=== PATIENT | female | born 2000 | race Caucasian/White ===

== ENCOUNTER 2019-11-30 10:04 | Emergency (ER) | payer OTHER, SELFPAY ==
--- NOTE | ~2019-11-30 | CT_ITS ---
EXAMINATION: CT abdomen pelvis w con INDICATION: Right lower quadrant abdominal pain TECHNIQUE: Computed tomographic images of the abdomen and pelvis were obtained after the administrati on of 100 cc of Omnipaque 350 intravenous contrast. The dose-length product (DLP) was 889.65 mGy-cm. Automated exposure control and iterative reconstruction technique were employed. COMPARISON: None available FINDINGS: The lung bases are clear. The heart size is normal. The liver, spleen, pancreas, gallbladde r, and adrenal glands are normal. The kidneys are unremarkable. No pathologically enlarged abdominal or pelvic lymph nodes are identified. There is no free intraperitoneal gas or evidence of bowel obstr uction. The appendix is normal. There is a tiny fat-containing umbilical hernia. There is a circumscr ibed area of fat attenuation anterior to the ascending colon with surrounding fat stranding. IMPRESSION: 1. Findings consistent with epiploic appendagitis of the ascending colon. Reviewed, dictated and finalized at location A.
[2019-11-30 10:21] VITALS: BP 127/81; PULSE 90; RESP 18; TEMP 37.3; O2SAT 99
[2019-11-30 10:38] LABS: Basophils Absolute Auto 0.1 K/mm3 (0.0-0.1); Basophils Percent Auto 0.6 % (0.2-1.2); Eosinophils Absolute Auto 0.1 K/mm3 (0-0.3); Eosinophils Percent Auto 1.3 % (0-4.4); Hematocrit 44.4 % (37.0-47.0); Hemoglobin 14.4 g/dL (12.0-15.0); Immature Granulocyte Absolute 0.04 K/mm3 (0.00-0.031); Immature Granulocyte Percent A 0.4 % (0-0.5); Lymphocytes Absolute Auto 1.98 K/mm3 (0.9-3.2); Mean Corpuscular HGB Conc 32.4 g/dl (32-36); Mean Corpuscular Hemoglobin 28.5 pg (26-34); Mean Corpuscular Volume 87.7 fl (80-100); Mean Platelet Volume 9.9 fl (7.4-10.4); Monocytes Absolute Auto 0.8 K/mm3 (0.1-0.6); Monocytes Percent Auto 8.3 % (2.6-8.5); Neutrophils Absolute Auto 6.9 K/mm3 (1.3-6.7); Neutrophils Percent Auto 69.4 % (45.5-73.1); Platelet Count Result 410 k/mm3 (150-375); Red Blood Count 5.06 M/mm3 (4.2-5.4); Red Cell Distribution Width 13.9 % (11.5-14.5); White Blood Count 9.9 K/mm3 (4.5-10.0)
[2019-11-30 10:40] LABS: Add Urine Microscopic? NO; Appearance Urine Clear (Clear); Bilirubin Urine Negative (Negative); Blood Urine Negative (Negative); Color Urine Colorless (Yellow); Glucose Urine UA Negative (Negative); Ketones Urine Negative (Negative); Leukocyte Esterase Ur Negative LEU/UL (Negative); Nitrate Urine Negative (Negative); Protein Urine Negative (Negative); Specific Grav Ur 1.006 (1.001-1.035); Urobilinogen Urine Negative mg/dL (<2.0)
[2019-11-30 10:51] LABS: Alanine Aminotransferase 28 U/L (4-35); Albumin Level 4.5 g/dL (3.5-5.1); Alkaline Phosphatase 100 U/L (38-126); Anion Gap 9 mmol/L (8-16); Aspartate Amino Transferase 27 U/L (14-36); Bilirubin,Total 0.4 mg/dL (0.2-1.3); Blood Urea Nitrogen 12 mg/dL (7-17); Calcium 9.6 mg/dL (8.4-10.2); Carbon Dioxide 25 mmol/L (22-30); Chloride 105 mmol/L (98-107); Estimated CRCL calculation 126 ml/min; Estimated Glomerular Filt Rate > 60; Glucose 94 mg/dL (65-105); Lipase 125 U/L (23-300); Potassium 4.1 mmol/L (3.4-5.0); Sodium 139 mmol/L (137-145)
--- NOTE | 2019-11-30 11:14 | ED.ABDPAIN ---
HPI - Abdominal Pain General Chief Complaint: Abdominal Pain <Michelle White PA-C - Last Filed: 11/30/19 12:58> Stated Complaint: RLQ ABD PAIN <DOROTHY Castorena Last Filed: 11/30/19 12:58> Time Seen by Provider: 11/30/19 10:17 <Michelle White PA-C - Last Filed: 11/30/19 12:58> Source: patient <Michelle DOROTHY Seymour Last Filed: 11/30/19 12:58> Mode of arrival: ambulatory <DOROTHY Castorena Last Filed: 11/30/19 12:58> Limitations: no limitations <DOROTHY Castorena Last Filed: 11/30/19 12:58> History of Present Illness HPI narrative: This is a 19-year-old female that presents the emergency department for right lower quadrant abdominal pain since yesterday. Associated with nausea and vomiting. Reports pain is worse with movement. Reports she recently had a nerve ablated in her pelvis on this side. Denies fever, diarrhea, dysuria, hematuria. <Michelle White PA-C - Last Filed: 11/30/19 12:58> Related Data Allergies/Adverse Reactions: Allergies Allergy/AdvReac Type Severity Reaction Status Date / Time No Known Allergies Allergy Verified 11/30/19 10:25 <Michelle White PA-C - Last Filed: 11/30/19 12:58> Review of Systems Review of Systems: Narrative: CONSTITUTIONAL: Denies fever GASTROINTESTINAL: Reports abdominal pain, nausea, vomiting. Denies diarrhea. GENITOURINARY: Denies dysuria or hematuria. <Michelle White PA-C - Last Filed: 11/30/19 12:58> All systems reviewed & are unremarkable except as noted in HPI and below <DOROTHY Castorena Last Filed: 11/30/19 12:58> [facility] Past Medical History Medical History: Medical History (Updated 11/30/19 @ 12:24 by Sylvia Ramos MD) History of anxiety History of depression <DOROTHY Castorena Last Filed: 11/30/19 12:58> Surgical History Surgical History: Surgical History (Updated 11/30/19 @ 11:17 by Michelle White PA-C) History of abdominal surgery <Michelle White PA-C - Last Filed: 11/30/19 12:58> Social History Social History: Social History (Updated 11/30/19 @ 11:16 by Michelle White PA-C) Smoking status: Current every day smoker Tobacco type: e-cigarettes/vaping Substance use: never <Michelle White PA-C - Last Filed: 11/30/19 12:58> Exam Narrative: Exam Narrative: GENERAL: Well-appearing, well-nourished, and in no acute distress. HEAD: Normocephalic, atraumatic. EYES: EOMI. CHEST: Clear to auscultation. No respiratory distress. No wheezes rales or rhonchi HEART: Regular rate and rhythm. No murmur heard. Normal peripheral pulses. ABDOMEN: Soft, nondistended, normal active bowel sounds. Tender to palpation of the right lower quadrant, without guarding. No CVA tenderness EXTREMITIES: Normal range of motion. No edema. SKIN: Warm, dry, no rash. NEURO: No focal deficits. Alert and oriented x3. PSYCH: Normal mood and affect <Michelle White PA-C - Last Filed: 11/30/19 12:58> Course Vital Signs Vital signs: Vital Signs Temperature 99.1 F 11/30/19 10:21 Pulse Rate 90 11/30/19 10:21 Respiratory Rate 18 11/30/19 10:21 Blood Pressure 127/81 11/30/19 10:21 Pulse Oximetry 99 11/30/19 10:21 Temperature 99.1 F 11/30/19 10:21 Pulse Rate 90 11/30/19 10:21 Respiratory Rate 18 11/30/19 10:21 Blood Pressure 127/81 11/30/19 10:21 Pulse Oximetry 99 11/30/19 10:21 <Michelle White PA-C - Last Filed: 11/30/19 12:58> Vital Signs Temperature 99.1 F 11/30/19 10:21 Pulse Rate 90 11/30/19 10:21 Respiratory Rate 18 11/30/19 10:21 Blood Pressure 127/81 11/30/19 10:21 Pulse Oximetry 99 11/30/19 10:21 Temperature 99.1 F 11/30/19 10:21 Pulse Rate 90 11/30/19 10:21 Respiratory Rate 18 11/30/19 10:21 Blood Pressure 127/81 11/30/19 10:21 Pulse Oximetry 99 11/30/19 10:21 <Sylvia Ramos MD - Last Filed: 11/30/19 13:23> MDM - Abdominal Pain [facility] Medical de
[2019-11-30] MEDS: ONDANSETRON INJ 4 MG/2 ML VIAL IV PUSH (11:24)
[2019-11-30] MEDS: KETOROLAC 30 MG/ML VIAL (*BKC) IV PUSH (13:03)
[2019-11-30 13:35] VITALS: BP 121/74; PULSE 77; RESP 18; TEMP 36.8; O2SAT 98
== END 2019-11-30 13:36 | disposition home or self-care (01) ==
PROVIDERS: Physician Assistant; Emergency Provider Emergency Medicine; PCP Pediatrics
DX: K63.89 Other specified diseases of intestine (principal)
CPT/HCPCS: 36415; 74177; 80053; 81003; 81025; 83690; 85025; 96374; 96375; 99284; J1885; J2405; Q9967

== ENCOUNTER 2019-12-22 11:00 | Outpatient (CLI) | payer OTHER, SELFPAY ==
--- NOTE | ~2019-12-22 | US_ITS ---
US right upper quadrant INDICATION: Right upper quadrant pain PROCEDURE: Realtime right upper abdominal ultrasound. COMPARISON: No prior studies for comparison. FINDINGS: The pancreas is normal without focal mass or pancreatic ductal dilation. Liver echotexture is normal without focal mass or intrahepatic biliary dilatation. There is normal directional flow i n the portal vein. The gallbladder is normal without stones, gallbladder wall thickening or pericholecystic fluid. Comm on bile duct measures 4 mm. No sonographic Ellis's sign. IMPRESSION: 1: Normal limited abdominal ultrasound. Reviewed, dictated and finalized at location A.
== END 2019-12-22 11:01 | disposition home or self-care (01) ==
PROVIDERS: Visit Provider Surgery
DX: R10.11 Right upper quadrant pain (principal)
CPT/HCPCS: 76705

== ENCOUNTER → 2022-02-28 13:02 | Outpatient (CLI) | payer OTHER, SELFPAY ==
--- NOTE | ~2022-02-28 | US_ITS ---
EXAMINATION: US thyroid DATE: 02/28/2022 13:20 INDICATION: Other specified abnormal findings of blood chemistry. TECHNIQUE: Multiple ultrasound images of the thyroid were obtained. COMPARISON: None. FINDINGS: The right thyroid lobe measures 4.5 x 1.8 x 1.2 cm. The left thyroid lobe measures 4.7 x 1.6 x 1.4 c m. There is normal echotexture and echogenicity throughout the thyroid gland. No discrete nodules id entified. Normal vascular flow is present. IMPRESSION: 1. Normal thyroid. Reviewed, dictated and finalized at location A. [employer] IMPRESSION: 1. Normal thyroid.
== END ==
PROVIDERS: PCP Internal Medicine; Visit Provider Internal Medicine
DX: R79.89 Other specified abnormal findings of blood chemistry (principal)
CPT/HCPCS: 76536

== ENCOUNTER 2024-09-10 07:57 | Outpatient (CLI) | payer OTHER, SELFPAY ==
--- NOTE | ~2024-09-10 | MR_ITS ---
MRI of the right hand CLINICAL HISTORY: Pain TECHNIQUE: Axial T1-weighted and T2 fat-sat images, coronal T1-weighted and T2 fat-sat images, and sa gittal T1-weighted and T2 fat-sat images were acquired. FINDINGS: Bone marrow signals are unremarkable. No fracture or bone marrow edema seen. No evidence fo r osteomyelitis. No periosteal reaction seen. Joint spaces are intact without significant degenerativ e change. No evidence for inflammatory/erosive arthropathy. No joint effusion seen. Collateral ligame nt metacarpophalangeal and interphalangeal joints appear intact. Flexor and extensor tendons are intact. Intrinsic musculature of the hand is unremarkable. No soft ti ssue mass or fluid collection seen. IMPRESSION: No significant abnormality seen. Reviewed, dictated and finalized at [facility].
== END 2024-09-10 07:58 | disposition home or self-care (01) ==
PROVIDERS: PCP Orthopaedic Surgery; Visit Provider Orthopaedic Surgery
DX: M79.641 Pain in right hand (principal)
CPT/HCPCS: 73218

== ENCOUNTER 2024-11-03 14:47 | Outpatient (CLI) | payer OTHER, SELFPAY ==
--- OUTSIDE RECORDS SUMMARY | 2024-11-03 14:52 | XMS_ITS | Data Portability ---
Author Organization [facility], [facility] Address [address] [place] [address] Assessment No assessment recorded. Plan of Treatment Reminders Order Date Submit Date Provider Last Modified By Organization Details Last Modified Time Details Appointments None recorded. Lab rapid SARS CoV 2 Ag, QL, [place], upper respiratory specimen 2024 025 [facility], [address] [place], [address], 09:45:30 unlisted lab - veritor flu A/B waived 2024 025 [place] [address] [facility], [address] [place] [address], [id number], 09:41:44 Referral None recorded. Procedures None recorded. Surgeries None recorded. Imaging None recorded. Medication Orders oseltamivir 75 mg capsule 2024 025 [id number], [address], [place], [phone], 09:23:46 Patient TargetsNo targets recorded. Patient Instructions Encounter Date Encounter Id Patient Instructions Last Modified By Organization Details Last Modified Time 05/13/2024 [id number] un estilo de vid a quin: instrucciones de cuidado - [A healthy lifestyle: care instructions] Not available 05/13/2024 09:41:44 A healthy lifestyle: care instructions Not available 05/13/2024 09:41:44 exercise [email or web address] Not available 2024 09:41:44 nutrition [email or web address] Not available 2024 09:41:44 Reason for Referral None Reported. Results Created Date Observation Date Name Description Value Unit Range Abnormal Flag Note LastModifiedBy Organization Detail LastModifiedTime 05/13/1905/13/2024 VERIT OR FLU A/B WAIVE D influenza A POSITI VE negati ve abnormal Not Available [facility] [address] [place], [address], 05/13/2024 09:28:19 05/13/19 25 05/13/2024 VERIT OR FLU A/B WAIVE D influenza B NEGATI VE negati ve If the test is negat [place] for the prese nce of influ joellen A or influ joellen B antig en, infec tion due to influ joellen canno t be ruled -out becau se the antig en prese nt in the sampl e may be below the detec tion limit of the test. It is recom claudia d that these resul ts be confi rmed by viral cultu re or an FDA-c leare d influ joellen A and B molec ular assay . Not Available [facility] [address] [place], [address], 05/13/2024 09:28:19 05/13/1905/13/2024 rapid SARS CoV 2 Ag, QL, [place], upper respi rator y speci men SARS COVID-19 negati ve Not Available [facility] [address] [place], [address], 05/13/2024 09:02:47 Result Notes None recorded. Problems Name Problem SNOMED Code Status Onset Date Resolution Date Notes Provider Name and Address Organization Details Recorded Time Fever 484981513 Active 2024 MAME MOODY PA-C [address] [place] [address], [phone], [facility] 01/31/202 5 09:02:43 Influenza caused by Influenza A virus 044031448 Active 2024 MAME MOODY PA-C [address] [place] [address], [phone], [facility] 5 09:22:24 Problem Notes None recorded. Medical Equipment None Reported. Allergies No known drug allergies Medications Name Sig Start Date Stop Date Status Note LastModified by Organization Details LastModified Time clonidine HCl 0.1 mg tablet TAKE 1 TABLET BY MOUTH TWICE A DAY active Not Available Not Available No t Available azithromycin 250 mg tablet active Not Available Not Available Not Available fluconazole 150 mg tablet TAKE 1 TABLET BY MOUTH NOW. REPEAT IN 3 DAYS active Not Available Not Available No t Available metronidazol e 0.75 % (37.5 mg/5 gram) vaginal gel INSERT 1 APPLICATOR BY VAGINAL ROUTE FOR 5 NIGHTS active Not Available Not Available No t Available spironolacto ne 100 mg tablet TAKE 1 TABLET BY MOUTH ONCE DAILY WITH A MEAL FOR 30 DAYS active Not Available Not Available No t Available doxycycline hyclate 50 mg capsule TAKE 1 CAPSULE BY MOUTH EVERY DAY WITH FOOD FOR 30 DAYS active Not Available Not Available No t Available clobetasol 0.05 % topical cream APPLY TWICE DAILY TO ECZEMA UP TO 2 WEEKS/MONTH NEEDED. active Not Available Not Available N ot Available topiramate 25 mg tablet TAKE 1 TABLET BY MOUTH EVERYDAY AT BEDTIME active Not Available Not Available No t Available metronidazol e 500 mg tablet TAKE 1 TABLET BY MOUTH TWICE DAILY FOR 7 DAYS active Not Available Not Available No t Available levothyroxin e 100 mcg tablet TAKE 1 TABLET BY MOUTH EVERY DAY active Not Available Not Available No t Available clonidine HCl 0.2 mg tablet TAKE 1 TABLET BY MOUTH TWICE DAILY active Not Available Not Available No t Available lithium carbonate 300 mg capsule TAKE 2 CAPSULES BY MOUTH TWICE A DAY active Not Available Not Available No t Available oseltamivir 75 mg capsule TAKE 1 CAPSULE BY MOUTH TWICE DAILY FOR 5 DAYS active Not Available Not Available No t Available metformin 1,000 mg tablet 1000 MG ORALLY TWICE A DAY active Not Available Not Available Not Available lamotrigine 100 mg tablet TAKE 1 TABLET BY MOUTH TWICE A DAY FOR 30 DAYS active Not Available Not Available No t Available aripiprazole 15 mg tablet TAKE 1 TABLET BY MOUTH EVERY DAY active Not Available Not Available No t Available aripiprazole 20 mg tablet TAKE 1 TABLET BY MOUTH EVERY DAY FOR 90 DAYS active Not Available Not Available No t Available metformin ER 1,000 mg tablet,exten ded release 24hr (osmotic) 1000 MG ORALLY DAILY active Not Available Not Available No t Available nitrofuranto in monohydrate/ macrocrystal s 100 mg capsule TAKE 1 CAPSULE BY MOUTH EVERY 12 HOURS FOR 7 DAYS. TAKE WITH FOOD active Not Available Not Available No t Available Klonopin active Not Available Not Avai lable Not Available clonidine active Not Available Not Priyanka ilable Not Available levothyroxin e active Not Available Not Available Not Available lithium carbonate active Not Available Not Available No t Available lamotrigine active Not Available Not A vailable Not Available spironolacto ne active Not Available Not Available Not Available doxycycline hyclate active Not Available Not Available Not Available metformin active Not Available Not Priyanka ilable Not Available aripiprazole active Not Available Not Available Not Available lisdexamfeta mine 70 mg capsule TAKE 1 CAPSULE BY MOUTH DAILY IN THE MORNING active Not Available Not Available No t Available Vyvanse active Not Available Not Avail able Not Available Vitals Date Recorded Body weight Body mass index (BMI) Body height Pain severity - 0-10 verbal numeric rating [Score] - Reported Body temperature Heart rate Respiratory rate Oxygen saturation Oxygen saturation in Arterial blood by Pulse oximetry Systolic And Diastolic Provider Name and Address Organization Details Last Updated DateTime 5 883516. 09 g 38.2 kg/m2 165.1 cm 6 98.6 [degF] 104 /min 18 /min 98 % 98 % 127/86 mm[Hg] Bernadette Perez LPN [facility] 09:13:56 Social History Question Answer Notes LastModified by Kwaga Details LastModified Time Tobacco Smoking Status Never Smoker Bernadette Perez LPN [facility] 05/13/2024 09:11:34 PRAPARE Screening Completed On: 05/13/2024 Information not available 05/13/2024 What Was The Date Of Your Most Recent Tobacco Screening? 05/13/2024 [email or web address] Information not available 05/13/2024 Sex: Female Functional Status Question Answer Note LastModified by Kwaga Details LastModified Time Do you use any illicit or recreational drugs? Yes [email or web address] Information not available 05/13/2024 Do you or have you ever used any other forms of tobacco or nicotine? No [email or web address] Information not available 05/13/2024 Mental Status None recorded. Family History Nothing Reported. Medical History No medical history recorded. Gynecological History Statement/Question Response Date of LMP 04/13/2019 Obstetrics History GPAL:G 0 P 0 0 0 0 Past Encounters Encounter ID Performer Location Encounter Start Date Encounter Closed Date Diagnosis/Indication Diagnosis SNOMED-CT Code Diagnosis ICD10 Code Diagnosis Note [id number] Champ Figueroa MD [facility] [address] [place] [address] 05/13/2024 09:03:11 05/17/2024 09:01:23 Fever 145259467 R50.9 Obese class II 624944375 1 64095 E66.9 Body mass index 30+ - obesity 543568640 Z68.38 Dietary ma nagement surveillance 480385228 Z71.3 Exercises education, guidance, and counseling 131046733 Z71.82 Influenza caused by Influenza A virus 947197694 J09.X2 Patient positive for influenza A. Reassuranc e influenza is viral and typically resolves in 7-10 days. Tamiflu started. Risks and benefits and side effects of Tamiflu discussed with with patient. Discussed symptomati c treatment. Increased fluids. Get adequate rest. Cool mist humidifier . Tylenol and Motrin PRN for fever and pain. Return to PCP for lack of improvemen t. Call with any questions or concerns. Health Concerns Section Related Observation LastModified by Organization Detai ls LastModified Time None Recorded Concern Status LastModified by Organization Details LastModified Time None Recorded Advance Directives Directive None Recorded Payers Insurance Date Sequence Insurance Name Policy Number Policy Pérez Covered Member ID Pérez Member ID Guarantor Name 05/17/2024 1 [facility] [id number] Peyton Thompson [id number] Peyton Thompson Notes Date Note Type Note Provider Name and Address Organization Details Recorded Time 5 text/htm l Upper Respiratory SymptomsReported by PatientUpper Respiratory SymptomsFor quality, patient reportscongestedanddry cough. For associated symptoms, patient reportsfatigue,fever,sore throat, andnauseabut reportsno sputum production,no shortness of breath,no wheezing,no vomiting,no diarrhea, andno rash(body aches, chills). For location, patient reportsheadandthroat. For severity, patient reportsmild. For onset/timing, patient reportssudden. For context, patient reportsno sick contactsandnon-smoker. For duration, (1 day). For modifying factors, (has not taken anything yet).ROS as noted in the HPI MAME MOODY PA-C [address] [place] [address], [phone], [facility] 05/13/2024 09:28:22 OBGyn Episode No OBEpisode recorded.
--- OUTSIDE RECORDS SUMMARY | 2024-11-03 14:52 | XMS_ITS | Clinical Summary ---
Author Organization [facility] Address [address] [place] [address] Care Team Providers Care Fixture Designer Name Role Phone Unavailable Primary Care Provider Unavailabl e Source Comments [facility],non-owned Affiliates and Associated Physician Practices is amultiple site organization consisting of ambulatory clinics and hospital sitesin [place], [place], [place] and [place]. This disclosure is being madepursuant to the Care Everywhere program and may not contain all information available regarding this patient. Last updated 18.[facility] No Chains Allergies No known active allergies Medications * Be aware that medications may not be up to date on this document. Alwaysverify current medications with the patient. sertraline (ZOLOFT) 50 MG tablet Active etonogestrel (NEXPLANON) 68 MG implant 68 mg by Subdermal route as directed Active sertraline (ZOLOFT) 100 MG tablet Take 100 mg by mouth once daily Active gabapentin (NEURONTIN) 100 MG capsule Take 1 (one) capsule by mouth at bedtime 90 capsule 1 1 Active fluconazole (DIFLUCAN) 200 MG tabletIndication s:Yeast infection involving the vagina and surrounding area One by mouth every other day for three doses. 3 tablet 1 Active Active Problems Problem Noted Date Diagnosed Date Chronic interstitial cystitis 08/03/2017 Chronic pelvic pain in female 08/03/2017 Dysmenorrhea 08/03/2017 Urinary frequency 08/03/2017 Urinary urgency 08/03/2017 Myalgia of pelvic floor 08/03/2017 Bladder pain 05/11/2017 Allergic rhinitis 12/16/2012 Migraine 04/30/2012 Immunizations Immunization Administration Dates Next Due DTaP VACCINE IM (6wk-6yrs) 08/01/2004,,1999,05/30,1999 HEP A PEDS 2 DOSE 10/05/2014,10/24/2013 HEP B VACCINE, PED/ADOL 04/24/2000,1999, HIB BOOSTER 07/24/2000, 0,1999,03/25 Human Papilloma Virus Nineva lent Vaccine 03/14/2019,01/10/2019 MENINGOCOCCAL ACWY (MCV4P) VAC IM 11/23/2015, MMR 08/01/2004,01/23/2000 POLIO IPV 08/01/2004, 1,1999,03/25 PPD 08/01/2004,01/23/2000 TDAP (7yrs+) 10/22/2010 VARICELLA 10/24/2013,04/24/2000 Family History Medical History Relation Name Comments CAD (Coronary Artery Disease) Paternal Grandfather CVA Paternal Grandfather Depression Paternal Grandfather Diabetes - Type 1 Paternal Grandfather Hypertension Paternal Grandfather CVA Paternal Grandmother Hypertension Paternal Grandmother Depression Sister Relation Name Status Comments Paternal Grandfather Paternal Grandmother Sister Social History Tobacco Use Types Packs/Day Years Used Date Smoking Tobacco: Never Smokeless Tobacco: Never Alcohol Use Standard Drinks/Week Comments Yes 0 (1 standard drink = 0.6 oz pur e alcohol) once weekly AUDIT-C Answer Date Recorded Q1: How often do you have a drink containing alc ohol? 2-4 times a month 07/02/2020 Q2: How many drinks containi ng alcohol do you have on a typical day when you are drinking? 1 or 2 07/02/2020 Frequency of Binge Drinking Not on file 06/12 Comments No Sex and Gender Information Value Date Recorded Sex Assigned at Not on file Legal Sex Female 5:41 AM [employer] Gender Identity Not on file Sexual Orientation Not on file Last Filed Vital Signs Vital Sign Reading Time Taken Comments Blood Pressure 168/98 07/02/2020 12:55 PM CDT Pulse 99 02/24/2018 9:59 AM [employer] Temperature 36.6 C (97.9 F) 09/23/2019 3:33 PM CDT Respiratory Rate 16 07/09/2017 7:42 PM CDT Oxygen Saturation 100% 07/09/2017 6:50 PM CDT Inhaled Oxygen Concentration - - Weight 104.5 kg (230 lb 6.4 oz) 021 12:55 PM CDT Height 162.6 cm (5' 4) 07/02/2020 12:5 5 PM CDT Body Mass Index 39.55 07/02/2020 12:55 PM CDT Plan of Treatment Health Maintenance Due Date Last Done Comments HIV SCREENING 2014 HEPATITIS C SCREENING 01/17/2017 CHLAMYDIA/GONORRHEA SCREENING 02/23/2018 02/23/2017 PAP SMEAR 01/23/2020 DTAP/TDAP/TD VACCINES (7 - Td or Tdap) 10/22/2020 10/22/2010, 08/01/2004, 07/24/2000, Additional history exists COVID-19 VACCINE ( season) 2023 DEPRESSION SCREENING 04/13/2024 INFLUENZA VACCINE (#1) 2024 ZOSTER VACCINE (1 of 2) 2049 HEPATITIS B VACCINE Completed 04/24/2000, 1999, 1999 HIB VACCINE Completed 07/24/2000, 07/12, 1999, Additional history exists MENINGOCOCCAL GROUPS A/C/Y/W VACCINE Completed 11/23/2015, 05/02/2013 HPV VACCINE Discontinued 03/14/2019, 01/10/2019 MENINGOCOCCAL (Group B) VACCINE SHARED DECISION-MAKING Aged Out No longer eligible based on patient's age to complete this topic PNEUMOCOCCAL VACCINE Aged Out No long er eligible based on patient's age to complete this topic Goals Goal Patient Goal Type Associated Problems Recent Progress Patient-Stated? Author Reduce calorie intake Diet On track( 020 3:33 PM CDT) No Shoshana Rosa MD Note: Eating a healthy diet: Think of the food your child eats in terms of GO, SLOW, and WHOA foods. They can enjoy GO foods almost any time they like. Limit SLOW foods to certain occasions, no more than a few times per week. And enjoy WHOA foods only on special occasions, and then eat only a small portion. GO foods include low-fat, low-calorie foods that are also low in added sugar. They tend to be rich in nutrients, such as vitamins, minerals, and other healthy substances. Fresh fruits and vegetables are great examples of GO foods. That said, fried vegetables and fruits canned in syrup, despite their vital ingredients, fall into the category of WHOA foods. Be sure to stock up on GO foods so that you can offer a variety of foods to keep things interesting. SLOW foods tend to be higher in fat and added sugar than GO foods are. Examples include fruit juices, baked goods made with white, refined flour; and poultry cooked with the skin still on. WHOA foods are the highest in fat and added sugar. Foods prepared with heavy creams and butter, fried foods, and fatty meats are examples of foods your child should only eat once in a while. One way to identify unhealthy eating triggers is for your child to keep a journal, in which they writes down the food they ate, where they ate it, the time of day and - extremely important - the reasons for eating. Did they devour two slices of meatball pizza after school because they were truly hungry or because they simply wanted to hang out at the pizza parlor with their friends? If they give the latter reason, perhaps next time the group can split a pizza and she could consciously choose to n urse a single slice, even if everyone else grabs two. Where can I go for more information? [employer] [employer] ( ) www.aap.org, HealthyChildren.org www.healthychildren.org Website and free downloadable trisha for smartphones: http://www.[employer]/ Use safety retraint in car Lifestyle On track( 020 3:33 PM CDT) Diana Gandara RN Procedures Procedure Name Priority Date/Time Associated Diagnosis Comments CHLAMYDIA + GC AMPLIFIED PROBE Routine 02/23/2017 3:01 PM [employer] Lower abdominal pain from Last 3 Months or Most Recently Relevant to Health Maintenance Results * CHLAMYDIA + GC AMPLIFIED PROBE (02/23/2017 3:01 PM [employer]) Chlamydia RIC Urine Negative Negative [facility] ACCOUNT BILL GC RIC Urine Negative Negative [facility] ACCOUNT BILL Microbiology URINE / Unknown 02/23/2017 3 :01 PM [employer] 02/23/2017 Narrative Resulting Agency Comment [facility] [address] [facility] [facility] [place] [id number] Shoshana Rosa MD LAB - MICROBIOLOGY ORDERABLES Final Result [facility] ACCOUNT BILL [id number] [place] [address] from Last 3 Months or Most Recently Relevant to Health Maintenance Insurance CARE
--- OUTSIDE RECORDS SUMMARY | 2024-11-03 14:52 | XMS_ITS | Patient Health Record ---
Author Organization [facility] [employer] Address [address] [facility] [address] [place] [address] Care Team Providers Care Head Sulfide Operator Name Role Phone Keyana PERALES, Pierre Primary Care Provider Unavailab Teddy Crisostomo Unavailable [phone] Allergies No Known Allergies Reason For Referral No Information Medications Medication SIG (Take, Route, Frequency, Duration) Notes Start Date End Date Status cloNIDine HCl 0.2 MG 1 tablet Orally twice a day; Duration: 30 days Active [place] Carbonate 300 MG 3 capsules Orally Twice a day; Duration: 30 days Active ARIPiprazole 20 MG 1 tablet Oral Once a day; Duration: 90 days Active Levothyroxine Sodium 100 MCG TAKE 1 TABLET BY MOUTH EVERY DAY Oral; Duration: 90 Days Active Hydrocortisone 2.5 % External 08/21/2023 Active Spravato (84 MG Dose) 28 MG/DEVICE 3 sprays in each nostril Nasally twice a week; Duration: 1 days 10/27/2024 Active Spironolactone 100 MG Oral; Duration: 30 Days Active Venlafaxine HCl ER 37.5 MG Oral; Duration: 14 Days Not-Taking metFORMIN HCl ER (OSM) 1000 MG Oral; Duration: 30 Days Active metFORMIN HCl 500 MG Oral; Duration: 30 Days Not-Taking Topiramate 25 MG Oral; Duration: 30 Days Active Doxycycline Hyclate 50 MG Oral; Duration: 30 Days Active Vilazodone HCl 10 MG Oral; Duration: 7 Days Not-Taking KYLEENA 17.5 MCG/24 HR (UP TO 5 YEARS) 19.5 MG INTRAUTERINE DEVICE *Reorder from [employer] for eRx and Interaction Alerts* 08/21/2023 Active HYDROcodone-Acetaminop hen 5-325 MG Oral; Duration: 3 Days Not-Taking metFORMIN HCl 500 MG Oral 08/21/2023 Active Amoxicillin 500 MG Oral; Duration: 7 Days Not-Taking Doxycycline Hyclate 50 MG Oral 08/21/2023 Active Rizatriptan Benzoate 10 MG Oral; Duration: 18 Days Not-Taking Levothyroxine Sodium 100 MCG Oral 08/21/2023 Active Vilazodone HCl 20 MG Oral; Duration: 30 Days Not-Taking Lisdexamfetamine Dimesylate 30 MG Oral; Duration: 30 Days Not-Taking Spravato (56 MG Dose) 28 MG/DEVICE 2 sprays in each nostril Nasally once; Duration: 1 days 10/27/2024 Active Spironolactone 100 MG Oral 08/21/2023 Active Vilazodone HCl 40 MG Oral; Duration: 30 Days Not-Taking Lisdexamfetamine Dimesylate 40 MG Oral; Duration: 30 Days Not-Taking METFORMIN ER 1,000 MG TABLET,EXTENDED RELEASE 24HR (OSMOTIC) *Reorder from [employer] for eRx and Interaction Alerts* 08/21/2023 Active clonazePAM 0.5 MG Oral 08/21/2023 A ctive Rizatriptan Benzoate 10 MG Oral 08/21/2023 Active metFORMIN HCl 1000 MG Oral 08/21/2023 Active Cholecalciferol 1.25 MG (66308 UT) Oral 08/21/2023 Active Azithromycin 250 MG Oral; Duration: 5 Days Not-Taking Topiramate 25 MG Oral 08/21/2023 Ac tive Auvelity 45-105 MG Oral; Duration: 30 Days Not-Taking Ondansetron HCl 4 MG Oral 08/21/2023 Active Doxycycline Hyclate 100 MG Oral 08/21/2023 Active Vyvanse 70 MG 1 capsule in the morning Oral Once a day; Duration: 30 days 05/25/2024 Active valACYclovir HCl 500 MG Oral; Duration: 3 Days Not-Taking hydrOXYzine HCl 10 MG Oral 08/21/2023 Active Nexplanon 68 MG Subcutaneous 08/21/2023 Active lamoTRIgine 100 MG 1 tablet Orally twice a day; Duration: 30 days Active Venlafaxine HCl ER 150 MG Oral; Duration: 30 Days Not-Taking Vyvanse 50 MG Oral; Duration: 30 Days Not-Taking Lisdexamfetamine Dimesylate 70 MG 1 capsule in the morning Oral Once a day; Duration: 30 days 03/18/2024 Active Doxycycline Hyclate 100 MG Oral; Duration: 30 Days Not-Taking Lisdexamfetamine Dimesylate 70 MG 1 capsule in the morning Oral Once a day; Duration: 30 days Active [place] Carbonate 300 MG TAKE 2 CAPSULES BY MOUTH TWICE A DAY; Duration: 90 Active predniSONE 10 MG Oral; Duration: 12 Days Not-Taking Immunizations Vaccine Route Administration Date Status Comme nts Hep A, ped/adol, 2 dose Unknown 10/24/2013 Administered Hep A, ped/adol, 2 dose Unknown 10/05/2014 Administered HPV9 (human papillomavirus), nonavalent Unknown 01/10/2019 Administered HPV9 (human papillomavirus), nonavalent Unknown 03/14/2019 Administered Meningococcal MCV4P Unknown 05/02/2013 Administered Meningococcal MCV4P Unknown 11/23/2015 Administered Pfizer [employer] Covid-19 Vac cine 2nd dose Unknown 07/09/2020 Administered Pfizer [employer] Covid-19 Vac cine 2nd dose Unknown 07/29/2020 Administered Pfizer [employer] Covid-19 Vac cine 2nd dose Unknown 03/20/2021 Administered Pfizer [employer] Covid-19 Vac cine 2nd dose Unknown 02/28/2022 Administered Varicella Unknown 10/24/2013 Administered Social History Tobacco Use: Social History Observation Description Date Details (start date - stop date) Never Smoker NA - NA Sex Assigned At : Social History Observation Description Sex Assigned At Female Tobacco Control (Standard) Question Answer Notes Tobacco use: Nonsmoker Problems Problem Type SNOMED Code ICD Code Onset Dates Problem Status W/U Status Risk Notes Problem Severe recurrent major depression without psychotic features (07507283) Major depressive disorder, recurrent severe without psychotic features (F33.2) Active confirmed Problem Generalized anxiety disorder (03867024) Generalized anxiety disorder (F41.1) Active confirmed Problem Binge eating disorder (439364589) Binge eating disorder (F50.81) Active confirmed Problem Panic disorder (907396278) Panic disorder [episodic paroxysmal anxiety] without agoraphobia (F41.0) Active confirmed Vital Signs Height-cm 162.56 cm 10/11/2024 Height 64.00 in 10/11/2024 Encounters Encounter Location Date Provider Diagnosis [place] [id number] [facility] [address] [place] [address] 12/02/2023 Teddy Downing Major depressive disorder, recurrent severe without psychotic features F33.2 ; Generalized anxiety disorder F41.1 ; Binge eating disorder F50.81 ; Panic disorder [episodic paroxysmal anxiety] without agoraphobia F41.0 and Other supervisor intermediates (current) drug therapy Z79.899 [facility] [employer] [facility] [address] [facility] [address] [facility] [address] [place] [address] 01/20/2024 Teddy Downing Major depressive disorder, recurrent severe without psychotic features F33.2 ; Generalized anxiety disorder F41.1 ; Binge eating disorder F50.81 ; Panic disorder [episodic paroxysmal anxiety] without agoraphobia F41.0 and Other mcc (current) drug therapy Z79.899 [facility] [employer] [place] [id number] [facility] [address] [facility] [address] [place] [address] 02/10/2024 Teddy Downing Major depressive disorder, recurrent severe without psychotic features F33.2 ; Generalized anxiety disorder F41.1 ; Panic disorder [episodic paroxysmal anxiety] without agoraphobia F41.0 ; Other mcc (current) drug therapy Z79.899 and Binge eating disorder, moderate F50.811 [facility] [employer] [facility] [address] [facility] [address] [facility] [address] [place] [address] 05/11/2024 Teddy Downing Major depressive disorder, recurrent severe without psychotic features F33.2 ; Generalized anxiety disorder F41.1 ; Panic disorder [episodic paroxysmal anxiety] without agoraphobia F41.0 ; Other supervisor intermediates (current) drug therapy Z79.899 and Binge eating disorder, moderate F50.811 [facility] [employer] [facility] [address] [facility] [facility] [address] [place] [address] 07/27/2024 Teddy Downing Major depressive disorder, recurrent severe without psychotic features F33.2 ; Generalized anxiety disorder F41.1 ; Panic disorder [episodic paroxysmal anxiety] without agoraphobia F41.0 ; Other mcc (current) drug therapy Z79.899 and Binge eating disorder, moderate F50.811 [facility] [employer] [facility] [address] [facility] [address] [place] [address] 10/11/2024 Teddy Downing Major depressive disorder, recurrent severe without psychotic features F33.2 ; Generalized anxiety disorder F41.1 ; Panic disorder [episodic paroxysmal anxiety] without agoraphobia F41.0 ; Other mcc (current) drug therapy Z79.899 and Binge eating disorder, moderate F50.811 [facility], [facility] [address] [place] [address] 11/03/2024 Teddy Goodea [facility], [facility] [address] [place] [address] 12/24/2023 Teddy Downing Binge eating disorde r F50.81 [facility], [facility] [address] [place] [address] 02/11/2024 Teddy Downing Mild binge-eating disorder F50.810 [facility], [facility] [address] [place] [address] 10/11/2024 Teddy Downing Major depressive disorder, recurrent severe without psychotic features F33.2 [facility], [facility] [address] [place] [address] 12/02/2023 Teddy Downing [facility], [facility] [address] [place] [address] 01/20/2024 Teddy Downing [facility], [facility] [address] [place] [address] 2024 Teddy Downing [facility], [facility] [address] [place] [address] 02/14/2024 Teddy Downing Binge eating disorder, moderate F50.811 [facility], [facility] [address] [place] [address] 03/17/2024 Teddy Downing Mild binge-eating disorder F50.810 [facility], [facility] [address] [place] [address] 03/17/2024 Teddy Downing [facility], [facility] [address] [place] [address] 03/17/2024 Teddy Downing Binge eating disorder, moderate F50.811 [facility], [facility] [address] [place] [address] 04/23/2024 Teddy Downing Mild binge-eating disorder F50.810 [facility], [facility] [address] [place] [address] 05/10/20[facility] [address] [place] [address] 05/18/2024 [facility] [address] [place] [address] 05/24/2024 [facility] [address] [place] [address] 05/24/2024 [facility], [facility] [address] [place] [address] 05/25/2024 [facility] [address] [place] [address] 05/25/2024 [facility] [address] [place] [address] 06/05/2024 [facility], [facility] [address] [place] [address] 06/27/2024 Teddy Downing Binge eating disorder, moderate F50.811 [facility], [facility] [address] [place] [address] 06/29/2024 [facility] [address] [place] [address] 06/29/2024 [facility] [address] [place] [address] 06/29/2024 [facility] [address] [place] [address] 06/29/2024 [facility] [address] [place] [address] 07/27/2024 [facility] [address] [place] [address] 07/27/2024 [facility] [address] [place] [address] 07/28/2024 Teddy Downing Binge eating disorder, moderate F50.811 [facility], [facility] [address] [place] [address] 09/01/2024 Teddy Downing Binge eating disorder, moderate F50.811 [facility] [employer], [place] [address] [place] [address] 10/03/2024 Teddy Downing Binge eating disorder, moderate F50.811 [facility] [employer], [place] [address] [place] [address] 10/04/2024 Teddy Downing Binge eating disorder, moderate F50.811 [facility] [employer], [place] [address] [place] [address] 10/04/2024 Teddy Downing Binge eating disorder, moderate F50.811 [facility], [place] [address] [place] [address] 10/04/2024 Teddy Downing [facility], [place] [address] [facility] [address] [place] [address] 10/05/2024 Teddy Downing [facility], [place] [address] [facility] [address] [place] [address] 10/05/2024 Teddy Downing Binge eating disorder, moderate F50.811 Assessments Encounter Date Diagnosis (ICD Code) Assessment Notes Treatment Notes Treatment Clinical Notes Section Notes 10/11/2024 Major depressive disorder, recurrent severe without psychotic features (ICD-10 - F33.2) 10/04/2024 Binge eating disorder, moderate (ICD-10 - F50.811) 10/05/2024 Binge eating disorder, moderate (ICD-10 - F50.811) 10/11/2024 Major depressive disorder, recurrent severe without psychotic features (ICD-10 - F33.2) abilify 20mg daily, lamotrigine 100mg bid. lithium 300mg 3 capsules bid 03/17/2024 Mild binge-eating disorder (ICD-10 - F50.810) 03/17/2024 Binge eating disorder, moderate (ICD-10 - F50.811) 05/11/2024 Major depressive disorder, recurrent severe without psychotic features (ICD-10 - F33.2) abilify 20mg daily, lamotrigine 100mg bid. lithium 300mg 3 capsules bid 06/27/2024 Binge eating disorder, moderate (ICD-10 - F50.811) 07/28/2024 Binge eating disorder, moderate (ICD-10 - F50.811) 12/02/2023 Major depressive disorder, recurrent severe without psychotic features (ICD-10 - F33.2) abilify 20mg daily, lamotrigine 100mg bid. lithium 300mg 3 capsules bid 1. 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 No suicidal thoughts reported, but cutting thoughts are present. The patient has not engaged in self-harm for at least two and a half weeks. - Continue current medications: Abilify 20mg daily, Lamotrigine 100mg twice a day, and [place] 3 capsules twice a day. Plan: - Encourage the patient to maintain a structured routine and continue building a support system. - Follow up in 30 days to monitor progress and adjust treatment as needed. 2. Anxiety: - The patient has Clonazepam 0.5mg daily as needed for panic attacks but has not used it recently. Plan: - Encourage the patient to use Clonazepam as needed and continue working with their therapist. - Follow up in 30 days to monitor progress and adjust treatment as needed. 3. Binge Eating Disorder: - The patient reports that Vyvanse 70mg daily is effective in managing symptoms. - The patient will call local pharmacies to check for Vyvanse availability and discuss with insurance regarding metformin cost. Plan: - Continue Vyvanse 70mg daily and follow up in 30 days to monitor progress and adjust treatment as needed. 01/20/2024 Major depressive disorder, recurrent severe without psychotic features (ICD-10 - F33.2) abilify 20mg daily, lamotrigine 100mg bid. lithium 300mg 3 capsules bid 1. Adjustment disorder with mixed anxiety and depressed mood - Continue current medications: Abilify 20 mg, Lamotrigine 100 mg twice a day, [place] 300 mg three capsules twice a day, Vyvanse, and clonazepam as needed. Plan: - Monitor patient's adjustment to college life and stress levels. - Schedule follow-up appointment in 6 weeks. 2. Binge eating disorder - Continue Vyvanse at the current dose for obsessive thoughts and food noise. Plan: - Encourage patient to explore behavior modification and understanding the reasons for eating (stress eating or eating for comfort). - Monitor appetite and eating habits during follow-up appointments. 3. Follow-up appointment Plan: - Patient to schedule a follow-up appointment in 6 weeks using the trisha. - Discuss any concerns or changes in symptoms during the follow-up appointment. 02/10/2024 Major depressive disorder, recurrent severe without psychotic features (ICD-10 - F33.2) abilify 20mg daily, lamotrigine 100mg bid. lithium 300mg 3 capsules bid 1. Bipolar Disorder - Patient reports improved mood and better management of depressive symptoms. Plan: - Continue Lamotrigine 100 mg twice a day - Continue [place] 300 mg twice a day - Continue Abilify 20 mg daily - Follow up in one month to reassess mood and medication effectiveness 2. Self-harm behavior - Patient reports occasional cutting episodes, with the last one occurring about a week and a half ago. - Patient is attending counseling and has support from friends. Plan: - Continue to monitor and address self-harm behavior in therapy and follow-up appointments 3. Anxiety - Patient has clonazepam as needed and reports not using it much. Plan: - No refill needed at this time - Continue to monitor anxiety levels and address in therapy and follow-up appointments 4. Hypothyroidism - Patient reports a high thyroid level of 6.810 and is currently on levothyroxine. Plan: - Encourage the patient to contact their medical doctor to discuss potential adjustments to levothyroxine dosage - Monitor for symptoms of hypothyroidism, such as fatigue, brain fog, weight gain, constipation, and dry, itchy skin 5. Sleep disturbances - Patient reports sleeping a lot, which may be related to high thyroid levels. Plan: - Address sleep disturbances with the medical doctor when discussing levothyroxine dosage adjustments - Monitor sleep patterns and discuss any changes during follow-up appointments 6. Interpersonal conflict - Patient experienced a recent incident with a peer at school, which caused emotional distress. Plan: - Encourage the patient to continue utilizing support from friends and counseling to manage interpersonal conflicts - Reinforce the importance of healthy coping strategies and communication skills during therapy and follow-up appointments 02/10/2024 Generalized anxiety disorder (ICD-10 - F41.1) clonazepam 0.5mg prn 1. Bipolar Disorder - Patient reports improved mood and better management of depressive symptoms. Plan: - Continue Lamotrigine 100 mg twice a day - Continue [place] 300 mg twice a day - Continue Abilify 20 mg daily - Follow up in one month to reassess mood and medication effectiveness 2. Self-harm behavior - Patient reports occasional cutting episodes, with the last one occurring about a week and a half ago. - Patient is attending counseling and has support from friends. Plan: - Continue to monitor and address self-harm behavior in therapy and follow-up appointments 3. Anxiety - Patient has clonazepam as needed and reports not using it much. Plan: - No refill needed at this time - Continue to monitor anxiety levels and address in therapy and follow-up appointments 4. Hypothyroidism - Patient reports a high thyroid level of 6.810 and is currently on levothyroxine. Plan: - Encourage the patient to contact their medical doctor to discuss potential adjustments to levothyroxine dosage - Monitor for symptoms of hypothyroidism, such as fatigue, brain fog, weight gain, constipation, and dry, itchy skin 5. Sleep disturbances - Patient reports sleeping a lot, which may be related to high thyroid levels. Plan: - Address sleep disturbances with the medical doctor when discussing levothyroxine dosage adjustments - Monitor sleep patterns and discuss any changes during follow-up appointments 6. Interpersonal conflict - Patient experienced a recent incident with a peer at school, which caused emotional distress. Plan: - Encourage the patient to continue utilizing support from friends and counseling to manage interpersonal conflicts - Reinforce the importance of healthy coping strategies and communication skills during therapy and follow-up appointments 02/11/2024 Mild binge-eating disorder (ICD-10 - F50.810) 12/24/2023 Binge eating disorder (ICD-10 - F50.81) 04/23/2024 Mild binge-eating disorder (ICD-10 - F50.810) 10/04/2024 Binge eating disorder, moderate (ICD-10 - F50.811) 10/03/2024 Binge eating disorder, moderate (ICD-10 - F50.811) 09/01/2024 Binge eating disorder, moderate (ICD-10 - F50.811) 07/27/2024 Major depressive disorder, recurrent severe without psychotic features (ICD-10 - F33.2) abilify 20mg daily, lamotrigine 100mg bid. lithium 300mg 3 capsules bid 07/27/2024 Generalized anxiety disorder (ICD-10 - F41.1) clonazepam 0.5mg prn 02/14/2024 Binge eating disorder, moderate (ICD-10 - F50.811) 02/10/2024 Panic disorder [episodic paroxysmal anxiety] without agoraphobia (ICD-10 - F41.0) 1. Bipolar Disorder - Patient reports improved mood and better management of depressive symptoms. Plan: - Continue Lamotrigine 100 mg twice a day - Continue [place] 300 mg twice a day - Continue Abilify 20 mg daily - Follow up in one month to reassess mood and medication effectiveness 2. Self-harm behavior - Patient reports occasional cutting episodes, with the last one occurring about a week and a half ago. - Patient is attending counseling and has support from friends. Plan: - Continue to monitor and address self-harm behavior in therapy and follow-up appointments 3. Anxiety - Patient has clonazepam as needed and reports not using it much. Plan: - No refill needed at this time - Continue to monitor anxiety levels and address in therapy and follow-up appointments 4. Hypothyroidism - Patient reports a high thyroid level of 6.810 and is currently on levothyroxine. Plan: - Encourage the patient to contact their medical doctor to discuss potential adjustments to levothyroxine dosage - Monitor for symptoms of hypothyroidism, such as fatigue, brain fog, weight gain, constipation, and dry, itchy skin 5. Sleep disturbances - Patient reports sleeping a lot, which may be related to high thyroid levels. Plan: - Address sleep disturbances with the medical doctor when discussing levothyroxine dosage adjustments - Monitor sleep patterns and discuss any changes during follow-up appointments 6. Interpersonal conflict - Patient experienced a recent incident with a peer at school, which caused emotional distress. Plan: - Encourage the patient to continue utilizing support from friends and counseling to manage interpersonal conflicts - Reinforce the importance of healthy coping strategies and communication skills during therapy and follow-up appointments 01/20/2024 Generalized anxiety disorder (ICD-10 - F41.1) clonazepam 0.5mg prn 1. Adjustment disorder with mixed anxiety and depressed mood - Continue current medications: Abilify 20 mg, Lamotrigine 100 mg twice a day, [place] 300 mg three capsules twice a day, Vyvanse, and clonazepam as needed. Plan: - Monitor patient's adjustment to college life and stress levels. - Schedule follow-up appointment in 6 weeks. 2. Binge eating disorder - Continue Vyvanse at the current dose for obsessive thoughts and food noise. Plan: - Encourage patient to explore behavior modification and understanding the reasons for eating (stress eating or eating for comfort). - Monitor appetite and eating habits during follow-up appointments. 3. Follow-up appointment Plan: - Patient to schedule a follow-up appointment in 6 weeks using the trisha. - Discuss any concerns or changes in symptoms during the follow-up appointment. 12/02/2023 Generalized anxiety disorder (ICD-10 - F41.1) clonazepam 0.5mg prn 1. 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 No suicidal thoughts reported, but cutting thoughts are present. The patient has not engaged in self-harm for at least two and a half weeks. - Continue current medications: Abilify 20mg daily, Lamotrigine 100mg twice a day, and [place] 3 capsules twice a day. Plan: - Encourage the patient to maintain a structured routine and continue building a support system. - Follow up in 30 days to monitor progress and adjust treatment as needed. 2. Anxiety: - The patient has Clonazepam 0.5mg daily as needed for panic attacks but has not used it recently. Plan: - Encourage the patient to use Clonazepam as needed and continue working with their therapist. - Follow up in 30 days to monitor progress and adjust treatment as needed. 3. Binge Eating Disorder: - The patient reports that Vyvanse 70mg daily is effective in managing symptoms. - The patient will call local pharmacies to check for Vyvanse availability and discuss with insurance regarding metformin cost. Plan: - Continue Vyvanse 70mg daily and follow up in 30 days to monitor progress and adjust treatment as needed. 05/11/2024 Generalized anxiety disorder (ICD-10 - F41.1) clonazepam 0.5mg prn 10/11/2024 Generalized anxiety disorder (ICD-10 - F41.1) clonazepam 0.5mg prn 10/11/2024 Panic disorder [episodic paroxysmal anxiety] without agoraphobia (ICD-10 - F41.0) 05/11/2024 Panic disorder [episodic paroxysmal anxiety] without agoraphobia (ICD-10 - F41.0) 12/02/2023 Binge eating disorder (ICD-10 - F50.81) cont vyvanse 70mg daily 1. 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 No suicidal thoughts reported, but cutting thoughts are present. The patient has not engaged in self-harm for at least two and a half weeks. - Continue current medications: Abilify 20mg daily, Lamotrigine 100mg twice a day, and [place] 3 capsules twice a day. Plan: - Encourage the patient to maintain a structured routine and continue building a support system. - Follow up in 30 days to monitor progress and adjust treatment as needed. 2. Anxiety: - The patient has Clonazepam 0.5mg daily as needed for panic attacks but has not used it recently. Plan: - Encourage the patient to use Clonazepam as needed and continue working with their therapist. - Follow up in 30 days to monitor progress and adjust treatment as needed. 3. Binge Eating Disorder: - The patient reports that Vyvanse 70mg daily is effective in managing symptoms. - The patient will call local pharmacies to check for Vyvanse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
--- OUTSIDE RECORDS SUMMARY | 2024-11-03 14:53 | XMS_ITS | Data Portability ---
Author Organization 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 Patient will come back in a year unless there are new symptoms. [email or web address] Not available 03/30/2024 15:13:39 Plan of Treatment Reminders Order Date Submit Date Provider Last Modified By Organization Details Last Modified Time Details Appointments None recorded. Lab test, urine [email or web address] [place] [address], [address], [address], [place], [address], 16:26:31 test, urine [email or web address] [place] [address], [address], [address], [place], [address], 09:37:33 Referral None recorded. Procedures None recorded. Surgeries None recorded. Imaging None recorded. Medication Orders Valtrex 1 gram tablet 2022 023 mark [id number], [address] [place], [address], 3 11:48:28 lidocaine 5 % topical ointment 2022 023 [email or web address] 1 [id number], [address] [place], [address], 4 15:15:02 Patient TargetsNo targets recorded. Patient InstructionsNo instructions recorded. Reason for Referral None Reported. Results Created Date Observation Date Name Description Value Unit Range Abnormal Flag Note LastModifiedBy Organization Detail LastModifiedTime 08/20/19 23 08/19/2022 CT/GC AND TRICH OMONA S VAGIN JL (RRNA ), URINE chlamydia trachomatis, PCR Negati ve negati ve Not Available [facility] (Lab) [address], [place], [address], 08/20/2022 16:30:03 08/20/19 23 08/19/2022 CT/GC AND TRICH OMONA S VAGIN JL (RRNA ), URINE neisseria gonorrhoeae, PCR Negati ve negati ve Not Available [facility] (Lab) [address], [place], [address], 08/20/2022 16:30:03 08/20/19 23 08/19/2022 CT/GC AND TRICH OMONA S VAGIN JL (RRNA ), URINE trichomonas vaginalis ribosomal RNA (rrna) Negati ve negati ve Not Available [facility] (Lab) [address], [place], [address], 08/20/2022 16:30:03 08/20/19 23 08/19/2022 HEPAT ITIS B SURFA CE ANTIG EN hepatitis B surface antigen Non-re active non-re active This assay was perfo rmed using [employer] ratio n reage nts and test kits. Value s obtai joanna with other assay metho ds or kits canno t be used inter andino eably . Not Available [facility] (Lab) [address], [place], [address], 08/20/2022 22:07:39 08/20/19 23 08/19/2022 HEPAT ITIS C ANTIB KEYANNA SCREE N, REFLE X TO CONFI RMATI ON hepatitis C antibody Non-re active non-re active Antib odies to HCV Not Detec jose, does not exclu de the possi bilit y of expos ure to HCV. Not Available [facility] (Lab) [address], [place], [address], 08/20/2022 22:07:39 08/20/19 23 08/19/2022 HIV 1/2 ANTIG EN/AN TIBOD Y, REFLE X CONFI RMATI ON HIV antigen/anti body Nonrea ctive nonrea ctive HIV-1 antig en and HIV-1 /HIV- 2 antib odies were not detec jose. No labor atory evide nce of HIV infec tion. Not Available [facility] (Lab) [address], [place], [address], 08/20/2022 22:07:40 08/20/19 23 08/19/2022 RPR SCREE N/REF LAURI TITER /FTA RPR screen Nonrea ctive nonrea ctive Not Available [facility] (Lab) [address], [place], [address], 08/20/2022 22:07:40 08/20/19 23 08/19/2022 HEPAT ITIS B CORE, IGM hepatitis B core IgM antibody Negati ve negati ve Not Available [facility] (Lab) [address] [place], [address], 08/20/2022 22:07:41 03/30/20 24 03/30/2024 IMAGE GUIDE D PAP, REFLE X HPV IF ASCUS ONLY image guided Pap, reflex HPV ASCUS only SEE RESULT S BELOW abnormal CASE REPOR T: Cytol ogy Gynec ologi mir Repor t Case: [id number] Autho macho g Provi joy: Kristy Baird, DARREN Haji cted: 03/30 1713 Order ing Locat ion: [place] Patho logy Recei kary: 03/31 1028 First Scree n: Pito Hopkins, CT Patho logis t: Scooby Tran MD Speci men: Scree melony Pap - Image d, Cervi x STATE MENT OF ADEQU ACY: Satis facto ry for evalu ation Trans forma tion zone compo nent absen t ----- ----- ----- ----- ----- ----- ----- ----- ----- ----- ----- ----- ----- ----- ----- ----- ----- ---- FINAL DIAGN OSIS: Epith elial Cell Abnor malit y, Squam ous Cell: Low Grade Squam ous Intra epith elial Lesio n (LSIL ). Shift in marvel sugge stive of bacte rial vagin osis. Elect dana mora by Scooby mendes MD on 04/12 at 1541 PROJECT SURVEYOR ----- ----- ----- ----- ----- ----- ----- ----- ----- ----- ----- ----- ----- ----- ----- ----- ----- ---- COMME NT: This speci men was revie wed by a Cytot echno logis t and/o r Patho logis t (as indic ated in this repor t) after evalu ation using the Thinp rep Imagi ng Syste m. CLINI MIR INFOR MATIO N: Menst rual Statu s: LMP (if appli cable ): Clini mir Histo ry/Pr eviou s Pap: Type of Neopl stefani (if appli cable ): Signi frandy t Clini mir Findi ngs: Other Histo ry: Hormo natalie (if appli cable ): JOSH NAM FOLLO W-UP: Follo w up as terence nted, based on curre nt guide lines and indiv idual patie nt consi derat ions. Not Available [facility] (Lab) [address], [place], [address], 04/12/2024 16:44:03 03/30/20 24 03/30/2024 TRICH OMONA S VAGIN JL (RRNA ) trichomonas vaginalis ribosomal RNA (rrna) Negati ve negati ve Not Available [facility] (Lab) [address], [place], [address], 04/12/2024 16:44:04 03/30/20 24 03/30/2024 CT/GC (GRETA) , THINP REP VIAL chlamydia trachomatis, PCR Negati ve negati ve Not Available [facility] (Lab) [address], [place], [address], 04/12/2024 16:44:04 03/30/20 24 03/30/2024 CT/GC (GRETA) , THINP REP VIAL neisseria gonorrhoeae, PCR Negati ve negati ve Not Available [facility] (Lab) [address], [place], [address], 04/12/2024 16:44:04 04/22/19 25 04/22/2024 SURGI MIR PATHO LOGY surgical pathology SEE RESULT S BELOW CASE REPOR T: Surgi mir Patho logy Repor t Case: [id number] Autho macho españa Provi joy: Yeimy Tripp MD Colle cted: 04/22 1333 Order ing Locat ion: [place] Patho logy Recei kary: 04/23 0137 Patho logis t: Lucina Thompson MD Speci mens: A) - Cervi x, CXBX B) - Endoc ervix , ECC ----- ----- ----- ----- ----- ----- ----- ----- ----- ----- ----- ----- ----- ----- ----- ----- ----- ---- FINAL DIAGN OSIS: A. Cervi x, biops y: -Low- grade squam ous intra epith elial lesio n (DESIREE- 1). B. Endoc ervic al curet tage: -Low- grade squam ous intra epith elial lesio n (DESIREE- 1). Shreya mora by Lucina Thompson MD on 2024 at 1620 PROJECT SURVEYOR ----- ----- ----- ----- ----- ----- ----- ----- ----- ----- ----- ----- ----- ----- ----- ----- ----- ---- COMME NT: The prece ding Pap smear is appre falguni mora ([id number]). CLINI MIR INFOR MATIO N: Low grade squam ous intra epith elial lesio n MICRO SCOPI C DESCR IPTIO N: A micro scopi c exami natio n was perfo rmed. GROSS DESCR IPTIO N: A. Cervi x. The speci men is label ed with the patie nt's name, demog raphi cs and Cx Bx. Recei kary in forma jing is a 0.3 cm piece of white -martin tissu e mixed with mucoi d mater ial. The entir e speci men is submi tted in one casse tte. Gross ed by Zion Goldstein B. Endoc ervix . The speci men is label ed with the patie nt's name, demog raphi cs and ECC . Recei kary in forma jing is a 1.3 x 0.8 x 0.[address] of mucus and minut e white -martin tissu e. The entir e speci men is submi tted in one casse tte. Gross ed by Zion Goldstein Not Available [facility] (Lab) [address], [place], [address], 04/25/2024 17:23:02 04/22/19 25 04/22/2024 pregn steven test, urine HCG negati ve Not Available [address], [place], [address], 04/22/2024 09:37:21 09/20/19 25 09/19/2024 SURGI MIR PATHO LOGY surgical pathology SEE RESULT S BELOW CASE REPOR T: Surgi mir Patho logy Repor t Case: [id number] Autho macho taco Provi joy: Yeimy Tripp MD Colle cted: 09/19 1707 Order ing Locat ion: [place] Patho logy Recei kary: 09/20 0132 Patho logis t: Per Calero rd, MD Speci men: Cervi x, CXBX ----- ----- ----- ----- ----- ----- ----- ----- ----- ----- ----- ----- ----- ----- ----- ----- ----- ---- FINAL DIAGN OSIS: Cervi x; biops y: Low-g rade squam ous intra epith elial lesio n (DESIREE- 1) Benhalima foreman endoc ervic al mucos a Shreya mora by Per Calero rd, MD on 2024 at 1329 CDT ----- ----- ----- ----- ----- ----- ----- ----- ----- ----- ----- ----- ----- ----- ----- ----- ----- ---- CLINI MIR INFOR MATIO N: Atypi mir squam ous cell MICRO SCOPI C DESCR IPTIO N: Digit al imagi ng was used in the diagn ostic asses sment of this case. A micro scopi c exami natio n was perfo rmed. GROSS DESCR IPTIO N: Pat Cervi x. The speci men is label ed with the patie nt's name, rogerio march cs and Cx Bx. Recei kary in forma jing is a 0.3 cm piece of white -martin tissu e. The entir e speci men is submi tted in one casse tte. Gross ed by Willie Barger ll Not Available [facility] (Lab) [address], [place], [address], 09/20/2024 14:31:57 09/20/19 25 09/19/2024 pregn steven test, urine HCG negati ve Not Available [facility] [address], [place], [address], 09/19/2024 16:25:20 Result Notes None recorded. Problems Name Problem SNOMED Code Status Onset Date Resolution Date Notes Provider Name and Address Organization Details Recorded Time Inflammation of vestibule of vulva 89880693 Active 2019 Annie nicolas, [facility] 0 17:14:42 Mixed anxiety and depressive disorder 260685201 Active 2023 Faye nicolas, [facility] 4 15:17:09 Attention deficit hyperactivity disorder [id number] Active 2023 Faye nicolas, [facility] 4 15:17:31 Personality disorder [id number] Active 2023 Faye nicolas, [facility] 4 15:17:56 Problem Notes None recorded. Procedures Surgical History Date Name Laterality Status Provider Name and Address Organization Details Recorded Time 09/20/19 25 Colposcopy completed Kam Tripp MD [address], [place], [address], [facility] 09/19/2024 18:24:48 09/20/19 25 Colposcopy completed Felicia Chawla [facility] 09/19/2024 16:23:04 09/20/19 25 Colposcopy completed Felicia Chawla [facility] 09/19/2024 16:22:52 04/22/19 25 Colposcopy completed Kam Tripp MD [address], [place], [address], [facility] 04/22/2024 15:16:49 04/22/19 25 Colposcopy completed Felicia Chawla [facility] 04/22/2024 09:36:57 03/30/20 24 Date of Last Pap Smear completed Faye Ascencio [facility] 03/30/2024 15:18:42 02/25/20 22 IUD Insertion completed Yvette Johnson [facility] 03/04/2022 02:02:57 02/25/20 22 Nexplanon Removal completed Faye Ascencio [facility] 02/24/2022 10:40:32 01/25/20 22 procedure on finger completed Faye Ascencio [facility] 02/24/2022 10:04:27 03/13/20 21 procedure on finger completed Faye Ascencio [facility] 02/24/2022 10:04:21 04/04/20 20 Nexplanon Insert completed Yvette Johnson [facility] 04/04/2020 13:52:45 04/13/19 19 Laparoscopy completed Faye Ascencio [facility] 02/24/2022 10:03:58 08/12/19 18 Laparoscopy completed Faye Ascencio [facility] 02/24/2022 10:03:51 03/13/20 17 procedure on ankle completed Shoshana Bang [facility] 11/02/2019 11:04:32 07/13/19 17 neuroplasty of major peripheral nerve of leg completed Shoshana Bang [facility] 11/02/2019 11:04:47 Imaging Results None recorded. Procedure Notes None recorded. Medical Equipment None Reported. Allergies No known drug allergies Medications Name Sig Start Date Stop Date Status Note LastModified by Organization Details LastModified Time lamotrigi ne 150 mg tablet 03/20 completed Not Available Not Available Not Available metformin 500 mg tablet TAKE 1 TABLET BY MOUTH TWICE A DAY 03/30 completed Not Available Not Available Not Available venlafaxi ne ER 37.5 mg capsule,e xtended release 24 hr TAKE 1 CAPSULE BY MOUTH EVERY DAY 01/30 completed Not Available Not Available Not Available clonidine HCl 0.1 mg tablet TAKE 1 TABLET BY MOUTH TWICE A DAY 09/19 completed Not Available Not Available Not Available doxycycli ne hyclate 100 mg capsule TAKE 1 CAPSULE BY MOUTH TWICE A DAY WITH FOOD 03/30 completed Not Available Not Available Not Available azithromy desiree 250 mg tablet TAKE 2 TABLETS BY MOUTH TODAY, THEN TAKE 1 TABLET DAILY FOR 4 DAYS DIRECTED 09/19 completed Not Available Not Available Not Available fluconazo le 150 mg tablet TAKE 1 TABLET BY MOUTH NOW. REPEAT IN 72 HOURS 09/19 completed Not Available Not Available Not Available citalopra m 10 mg tablet TAKE 1 TABLET BY MOUTH EVERY DAY 04/02 completed Not Available Not Available Not Available valacyclo vir 1 gram tablet TAKE 1 TABLET BY MOUTH EVERY 12 HOURS FOR 10 DAYS 10/10 completed Not Available Not Available Not Available hydrocodo ne 5 mg-acetam inophen 325 mg tablet 01/30 completed Not Available Not Available Not Available prazosin 1 mg capsule TAKE 1 CAPSULE EVERY NIGHT AT BEDTIME 04/02 completed Not Available Not Available Not Available fluconazo le 200 mg tablet 05/14 completed Not Available Not Available Not Available naltrexon e 50 mg tablet TAKE 1/2 TABLET BY MOUTH EVERY DAY FOR 30 DAYS 08/19 completed Not Available Not Available Not Available metronida zole 0.75 % (37.5 mg/5 gram) vaginal gel Insert 1 applicat or by vaginal route for 5 nights 04/22 completed Not Available Not Available Not Available ondansetr on HCl 4 mg tablet TAKE 1 TABLET BY MOUTH EVERY 4 TO 6 HOURS NEEDED FOR NAUSEA. 03/20 completed Not Available Not Available Not Available clonazepa m 0.5 mg tablet TAKE 1 TABLET BY MOUTH EVERY DAY NEEDED 2024 active Not Available Not Available Not Avai lable spironola ctone 100 mg tablet TAKE 1 TABLET BY MOUTH ONCE DAILY WITH A MEAL FOR 30 DAYS 09/19 completed Not Available Not Available Not Available doxycycli ne hyclate 50 mg capsule TAKE 1 CAPSULE BY MOUTH EVERY DAY WITH FOOD FOR 30 DAYS 04/22 completed Not Available Not Available Not Available sertralin e 100 mg tablet TAKE 1.5 TABLETS EVERY DAY BY ORAL ROUTE FOR 30 DAYS. 06/13 completed Not Available Not Available Not Available clobetaso l 0.05 % topical cream APPLY TOPICALL Y UP TO TWICE DAILY NEEDED FOR RASH ON FEET 09/19 completed Not Available Not Available Not Available venlafaxi ne ER 150 mg capsule,e xtended release 24 hr TAKE 1 CAPSULE BY MOUTH EVERY DAY 03/30 completed Not Available Not Available Not Available topiramat e 25 mg tablet TAKE 1 TABLET BY MOUTH EVERYDAY AT BEDTIME 09/19 completed Not Available Not Available Not Available lithium carbonate 150 mg capsule TAKE 1 CAPSULE BY MOUTH TWICE A DAY 06/13 completed Not Available Not Available Not Available metronida zole 500 mg tablet TAKE 1 TABLET BY MOUTH TWICE DAILY FOR 7 DAYS DIRECTED 09/19 completed Not Available Not Available Not Available acetamino phen 300 mg-codein e 30 mg tablet TAKE ONE TO TWO TABLETS BY MOUTH EVERY 4 TO 6 HOURS NEEDED FOR PAIN 04/02 completed Not Available Not Available Not Available sulfameth oxazole 800 mg-trimet hoprim 160 mg tablet TAKE 1 TABLET BY MOUTH TWICE A DAY FOR 10 DAYS 01/30 completed Not Available Not Available Not Available aspirin 81 mg tablet,de layed release 03/30 completed Not Available Not Available Not Available tramadol 50 mg tablet TAKE 1 TABLET BY MOUTH EVERY 6 HOURS NEEDED FOR PAIN 04/02 completed Not Available Not Available Not Available lamotrigi ne 25 mg tablet 05/14 completed Not Available Not Available Not Available cefadroxi l 500 mg capsule TAKE 1 CAPSULE BY MOUTH TWICE DAILY X 3 DAYS 04/02 completed Not Available Not Available Not Available ciclopiro x 8 % topical solution APPLY 1 APPLICAT ION TOPICALL Y DAILY FOR 4 WEEKS 08/19 completed Not Available Not Available Not Available levothyro xine 100 mcg tablet 2024 active Not Available Not Available Not Avai lable clonidine HCl 0.2 mg tablet TAKE 1 TABLET BY MOUTH TWICE DAILY active Not Available Not Available No t Available citalopra m 20 mg tablet TAKE 1 TABLET BY MOUTH EVERY DAY 04/02 completed Not Available Not Available Not Available amitripty line 25 mg tablet TAKE 1 TABLET BEDTIME, MAY INCREASE TO 2 TABS AT BEDTIME AFTER 2 WEEKS. (3 TABS AFTER 3 WEEKS) 04/03 completed Not Available Not Available Not Available Depo-Prov era 150 mg/mL intramusc ular suspensio n Inject 1 mL every 3 months by intramus cular route. 2020 active patient given Depo injectio n into right hip lot [id number] exp 07/2021 and patient is next due for injectio n on Mar 01 through Mar 15, 2022. 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 Not Available Not Available Not Available gentamici n 0.3 % eye drops APPLY TO NAILS TWICE A DAY 09/17 completed Not Available Not Available Not Available amitripty line 10 mg tablet TAKE 1 TABLET BY MOUTH EVERY DAY 06/06 completed Not Available Not Available Not Available lithium carbonate 300 mg capsule TAKE 2 CAPSULES BY MOUTH TWICE A DAY 2024 active Not Available Not Available Not Avai lable rizatript an 10 mg disintegr ating tablet PLEASE SEE ATTACHED FOR DETAILED DIRECTIO NS 08/19 completed Not Available Not Available Not Available cephalexi n 500 mg capsule TAKE 1 CAPSULE BY MOUTH 3 TIMES A DAY, TAKEN THE DAY AFTER YOUR SURGERY FOR ONE DAY TREATMEN T. 01/30 completed Not Available Not Available Not Available oseltamiv ir 75 mg capsule TAKE 1 CAPSULE BY MOUTH TWICE DAILY FOR 5 DAYS 09/19 completed Not Available Not Available Not Available metformin 1,000 mg tablet 1000 MG ORALLY TWICE A DAY 03/30 completed Not Available Not Available Not Available halobetas ol propionat e 0.05 % topical ointment APPLY IN A THIN FILM TO THE AFFECTED SKIN AND RUB IN GENTLY AND COMPLETE LY 03/20 completed Not Available Not Available Not Available fluoxetin e 10 mg capsule TAKE 1 CAPSULE BY MOUTH EVERY DAY 04/02 completed Not Available Not Available Not Available Valtrex 500 mg tablet Take 1 tablet twice a day by oral route for 3 days. 03/30 completed Not Available Not Available Not Available gabapenti n 100 mg capsule 05/14 completed Not Available Not Available Not Available ibuprofen 600 mg tablet TAKE 1 TABLET BY MOUTH EVERY 6 HOURS FOR 3 DAYS 03/30 completed Not Available Not Available Not Available propranol ol 20 mg tablet 05/14 completed Not Available Not Available Not Available hydrocort isone 2.5 % topical ointment APPLY TO AFFECTED AREA TWICE DAILY NEEDED 09/17 completed Not Available Not Available Not Available Zoloft 25 mg tablet Take 1 tablet every day by oral route. 05/14 completed Not Available Not Available Not Available hydroxyzi ne HCl 10 mg tablet TAKE 1 TABLET BY MOUTH AT BEDTIME 09/17 completed Not Available Not Available Not Available ondansetr on 4 mg disintegr ating tablet TAKE 1 TABLET BY MOUTH EVERY 6 HOURS NEEDED FOR NAUSEA AND VOMITING 04/02 completed Not Available Not Available Not Available fluoxetin e 20 mg capsule TAKE 1 CAPSULE BY MOUTH EVERY DAY 04/02 completed Not Available Not Available Not Available fluticaso ne propionat e 50 mcg/actua tion nasal spray,[place] pension USE 2 SPRAYS IN EACH NOSTRIL EVERY DAY 08/19 completed Not Available Not Available Not Available sertralin e 50 mg tablet TAKE 1 TABLET BY MOUTH EVERY DAY IN THE MORNING 04/02 completed Not Available Not Available Not Available lamotrigi ne 100 mg tablet TAKE 1 TABLET BY MOUTH TWICE A DAY FOR 30 DAYS 09/19 completed Not Available Not Available Not Available naproxen 500 mg tablet TAKE 1 TABLET BY MOUTH 2 TIMES A DAY NEEDED WITH FOOD. DO NOT TAKE WITH OTHER ANTI-INF LAMMATOR IES 06/13 completed Not Available Not Available Not Available methylphe nidate ER 36 mg tablet,ex tended release 24 hr TAKE 1 TABLET BY MOUTH EVERY DAY IN THE MORNING 08/19 completed Not Available Not Available Not Available amoxicill in 500 mg-potass ium clavulana te 125 mg tablet TAKE 1 TABLET BY MOUTH TWICE DAILY FOR 5 DAYS DIRECTED 09/19 completed Not Available Not Available Not Available azithromy desiree 500 mg tablet TAKE 1 TABLET BY MOUTH TWICE A DAY 04/02 completed Not Available Not Available Not Available aripipraz ole 10 mg tablet TAKE 1 TABLET BY MOUTH EVERY DAY FOR 30 DAYS 09/17 completed Not Available Not Available Not Available aripipraz ole 15 mg tablet TAKE 1 TABLET BY MOUTH EVERY DAY 03/30 completed Not Available Not Available Not Available aripipraz ole 20 mg tablet TAKE 1 TABLET BY MOUTH EVERY DAY FOR 90 DAYS 2024 active Not Available Not Available Not Avai lable divalproe x ER 250 mg tablet,ex tended release 24 hr TAKE 1 TABLET EVERY NIGHT AT BEDTIME FOR 5 DAYS, THEN 2 TABLETS EVERY NIGHT AT BEDTIME. 04/02 completed Not Available Not Available Not Available Premarin 0.625 mg/gram vaginal cream Apply topicall y dime size amount to vaginal opening nightly x 30 days. 03/20 completed Not Available Not Available Not Available aripipraz ole 5 mg tablet TAKE 1 TABLET BY MOUTH EVERYDAY AT BEDTIME 08/19 completed Not Available Not Available Not Available escitalop get 5 mg tablet TAKE 1 TABLET BY MOUTH EVERY DAY 04/02 completed Not Available Not Available Not Available metformin ER 1,000 mg tablet,ex tended release 24hr (osmotic) 2024 active Not Available Not Available Not Avai lable nitrofura ntoin monohydra te/macroc rystals 100 mg capsule TAKE 1 CAPSULE BY MOUTH EVERY 12 HOURS FOR 7 DAYS. TAKE WITH FOOD 03/30 completed Not Available Not Available Not Available Zoloft 04/02 completed Not Available Not Available Not Available lithium carbonate 01/30 completed Not Available Not Available Not Available Effexor 01/30 completed Not Available Not Available Not Available Prozac 11/01 completed Not Available Not Available Not Available prazosin 04/02 completed Not Available Not Available Not Available aripipraz ole 2 mg tablet TAKE 1 TABLET BY MOUTH EVERY DAY FOR 30 DAYS 02/24 completed Not Available Not Available Not Available lisdexamf etamine 70 mg capsule TAKE 1 CAPSULE BY MOUTH EVERY DAY IN THE MORNING active Not Available Not Available No t Available Vyvanse 50 mg capsule TAKE 1 CAPSULE BY MOUTH EVERY DAY IN THE MORNING 03/30 completed Not Available Not Available Not Available cholecalc iferol (vitamin D3) 1,250 mcg (50,000 unit) capsule TAKE 1 CAPSULE WEEKLY FOR 8 WKS, THEN MONTHLY FOR 2 MONTHS 08/19 completed Not Available Not Available Not Available lisdexamf etamine 30 mg capsule TAKE 1 CAPSULE BY MOUTH EVERY DAY IN THE MORNING 03/30 completed Not Available Not Available Not Available lisdexamf etamine 40 mg capsule 09/19 completed Not Available Not Available Not Available vilazodon e 40 mg tablet TAKE 1 TABLET BY MOUTH EVERY DAY FOR 30 DAYS 03/30 completed Not Available Not Available Not Available Nexplanon 68 mg subdermal implant Inject by subcutan eous route. 03/20 completed LOT [id number] EXP 04/2022 [facility] [id number] Not Available Not Available Not Available lidocaine 5 % topical ointment APPLY TO AFFECTED AREA 1-4 TIMES DAILY NEEDED 03/30 completed Not Available Not Available Not Available D3-50 Cholecalc iferol 1,250 mcg (50,000 unit) capsule 08/19 completed Not Available Not Available Not Available Nuvessa 1.3 % (65 mg/5 gram) vaginal gel INSERT 1 APPLICAT ORFUL EVERY DAY BY VAGINAL ROUTE AT BEDTIME FOR 1 DAY. 03/20 completed Not Available Not Available Not Available Vraylar 1.5 mg capsule TAKE 1 CAPSULE BY MOUTH EVERY DAY 01/30 completed Not Available Not Available Not Available Trintelli x 10 mg tablet TAKE 1 TABLET BY MOUTH EVERY DAY FOR 30 DAYS 03/20 completed Not Available Not Available Not Available Targadox 50 mg tablet 08/19 completed Not Available Not Available Not Available Kyleena 17.5 mcg/24 hr (up to 5 years) 19.5 mg intrauter ine device Take 1 device by intraute rine route. 2021 active Not Available Not Available Not Avai lable Nurtec ODT 75 mg disintegr ating tablet 09/17 completed Not Available Not Available Not Available Auvelity 45 mg-105 mg tablet, extended release 2024 active Not Available Not Available Not Avai lable Vitals Date Recorded Body height Body mass index (BMI) Body weight Systolic And Diastolic Provider Name and Address Organization Details Last Updated DateTime 04/22/2024 165.1 cm 38.3 kg/m2 160762.25 g 127/83 mm[Hg] [facility] 04/22/2024 09:28:34 Date Recorded Body height Body mass index (BMI) Body weight Systolic And Diastolic Provider Name and Address Organization Details Last Updated DateTime 09/17/2022 165.1 cm 43.1 kg/m2 243411.42 g 146/77 mm[Hg] Irlanda Sutton [facility] 09/17/2022 10:31:40 Date Recorded Body height Body mass index (BMI) Body weight Systolic And Diastolic Provider Name and Address Organization Details Last Updated DateTime 09/19/2024 165.1 cm 39.4 kg/m2 798156.39 g 132/80 mm[Hg] [facility] 09/19/2024 16:16:07 Date Recorded Body height Body mass index (BMI) Body weight Systolic And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
--- OUTSIDE RECORDS SUMMARY | 2024-11-03 14:53 | XMS_ITS | Data Portability ---
Author Organization [place] [facility] , [facility] Address [address] [place] [address] Assessment No assessment recorded. Plan of Treatment Reminders Order Date Submit Date Provider Last Modified By Organization Details Last Modified Time Details Appointments None record ed. Lab None record ed. Referral None record ed. Procedures None record ed. Surgeries None record ed. Imaging None record ed. Medication Orders None record ed. Patient TargetsNo targets recorded. Patient InstructionsNo instructions recorded. Reason for Referral None Reported. Medical Equipment None Reported. Medications Name Sig Start Date Stop Date Status Note LastModified by Organization Details LastModified Time hydrocodone 5 mg-acetaminoph en 325 mg tablet active Not Available Not Available Not Available meloxicam 15 mg tablet active Not Available Not Available No t Available ondansetron HCl 4 mg tablet active Not Available Not Available Not Available cefadroxil 500 mg capsule active Not Available Not Available N ot Available Sprintec (28) 0.25 mg-0.035 mg tablet active Not Available Not Available No t Available Vitals None Recorded Social History None recorded. Functional Status None recorded. Mental Status None recorded. Family History Nothing Reported. Medical History No medical history recorded. Gynecological HistoryNo gynecological history recorded. Obstetrics History GPAL:G 0 P 0 0 0 0 Past Encounters Encounter ID Performer Location Encounter Start Date Encounter Closed Date Diagnosis/Indication Diagnosis SNOMED-CT Code Diagnosis ICD10 Code Diagnosis Note [id number] Isaac Hager MD [facility] [address] [address], [place] [address] 09/03/2015 11:57:36 09/03/2015 14:12:25 [id number] Jak Conley NP [facility] [address] [address], [place] [address] 10/03/2015 12:34:59 10/03/2015 12:36:14 [id number] [facility] MD [facility] [address] [facility] [address], [place] [address] 10/08/2015 12:49:03 10/08/2015 12:50:06 [id number] Isaac Hager MD [facility] [address], [place] [address] 10/16/2015 16:33:52 10/16/2015 16:55:23 [id number] Jak Conley NP [facility] [address], [place] [address] 11/21/2015 12:22:07 11/21/2015 14:48:28 [id number] Isaac Hager MD [facility] [address] [facility] [address], [place] [address] 12/18/2015 16:44:04 01/10/2016 10:28:15 Health Concerns Section Related Observation LastModified by Organization Detai ls LastModified Time None Recorded Concern Status LastModified by Organization Details LastModified Time None Recorded Advance Directives Directive None Recorded Payers Insurance Date Sequence Insurance Name Policy Number Policy Pérez Covered Member ID Pérez Member ID Guarantor Name 05/10/2019 1 [place] [employer] [employer] - [place]UE ACCESS CHOICE (PPO) [id number] Ugo Thompson [id number] Peyton Thompson 09/03/2015 1 *SELF PAY* Carmen Thompson 12/05/2019 1 [facility] [id number] Peyton Thompson [id number] Peyton Thompson OBGyn Episode No OBEpisode recorded.
--- OUTSIDE RECORDS SUMMARY | 2024-11-03 14:53 | XMS_ITS | Data Portability ---
Author Organization [employer] , [facility] Address [address] [place] [address] Assessment No assessment recorded. Plan of Treatment Reminders Order Date Submit Date Provider Last Modified By Organization Details Last Modified Time Details Appointments None recorded. Lab bacterial vaginosis + vaginitis panel, vaginal 2024 025 [facility], [address] [place], [address], 5 12:18:24 urinalysis, dipstick 2024 025 [email or web address] [facility], [address] [facility], [facility] [address], [place], [address], 5 14:25:06 culture, urine 2024 025 [facility], [address], [place], [address], 5 21:27:44 bacterial vaginosis + vaginitis panel, vaginal 2024 025 [employer], [address] [place], [address], 5 15:19:45 Referral None recorded. Procedures None recorded. Surgeries None recorded. Imaging None recorded. Medication Orders fluconazole 150 mg tablet 2024 025 [email or web address] [id number], [address], [place], [id number], 14:15:33 Patient TargetsNo targets recorded. Patient Instructions Encounter Date Encounter Id Patient Instructions Last Modified By Organization Details Last Modified Time 05/20/2024 [id number] -Follow up as needed sabra Not available 05/20/2024 10:17:00 06/08/2024 [id number] -Metronidazole x 7 days for BV infection -Diflucan x1, repeat in 72 hours for yeast infection -Vaginitis swab collected today --Will change treatment if indicated -Urine culture sent -follow up as needed [email or web address] Not available 06/08/2024 14:39:51 Reason for Referral None Reported. Results Created Date Observation Date Name Description Value Unit Range Abnormal Flag Note LastModifiedBy Organization Detail LastModifiedTime 05/04/1905/09/2024 VAGIN ITIS PLUS STD PANEL bacterial vaginosis BV POS negati ve abnormal Not Available [facility] [address] [place] [address], [address], 05/09/2024 15:19:45 05/04/19 25 05/09/2024 VAGIN ITIS PLUS STD PANEL gemini species C. spp POS negati ve abnormal Not Available [facility] [address] [place], [address], 05/09/2024 15:19:45 05/04/1905/09/2024 VAGIN ITIS PLUS STD PANEL gemini glabrata C. gla neg negati ve normal Not Available [facility] [address] [place] [address], [address], 05/09/2024 15:19:45 05/04/1905/09/2024 VAGIN ITIS PLUS STD PANEL trichomonas vaginalis CV/TV TRICH neg negati ve normal Not Available [facility] [address] [place], [address], 05/09/2024 15:19:45 05/04/1905/09/2024 VAGIN ITIS PLUS STD PANEL chlamydia trachomatis CT neg negati ve normal This repor t is inten ded for us in clini mir monit oring and manag ement of patie nts. It is not inten ded for use in medic al-le gal appli catio n. Not Available [facility] [address] [facility], [place], [address], 05/09/2024 15:19:45 05/04/19 25 05/09/2024 VAGIN ITIS PLUS STD PANEL neisseria gonorrhoeae GC neg negati ve normal This repor t is inten ded for us in clini mir monit oring and manag ement of patie nts. It is not inten ded for use in medic al-le gal appli catio n. Not Available [facility] [address] [facility], [place], [address], 05/09/2024 15:19:45 06/08/1906/09/2024 CULTU RE, URINE , ROUTI NE culture, urine, routine SEE NOTE abnormal CULTU RE, URINE , ROUTI NE Micro Numbe r: [id number] Test Statu s: Final Speci men Sourc e: Urine Speci men Quali ty: Adequ ate Resul t: 1,000 -9,00 0 CFU/M L of Group B Strep tococ cus isola jose Beta- hemol ytic strep tococ ci are predi ctabl y susce ptibl e to Penic illin and other beta- lacta ms. Susce ptibi lity testi ng not routi donato perfo rmed. Pleas e conta ct the labor atory withi n 3 days if susce ptibi lity testi ng is chris ed. Comme nt: Eryth romyc in and clind amyci n are not recom claudia d for treat ment of urina ry tract infec tions , but clind amyci n may be usefu l for treat ment of recto vagin al colon izati on or infec tion. Any amoun t of group B Strep tococ cus in urine speci mens obtai joanna from pregn ant femal es is a marke r of genit al tract colon izati on. If this patie nt is pregn ant, pleas e refer to [facility] guide lines for appro priat e scree melony and manag ement of pregn ant women . COMME NT: Addit ional non-p redom inati ng organ ism(s ) isola jose. These organ isms, commo nly found on exter nal and inter nal genit amie, are consi dered colon izers . No furth er testi ng perfo rmed. Not Available [facility] [address], [place], [address], 06/09/2024 21:27:44 06/08/19 25 06/10/2024 VAGIN ITIS PLUS STD PANEL bacterial vaginosis BV POS negati ve abnormal Not Available [address], [address], 06/10/2024 12:18:24 06/08/19 25 06/10/2024 VAGIN ITIS PLUS STD PANEL gemini species C. spp POS negati ve abnormal Not Available [address], [address], 06/10/2024 12:18:24 06/08/19 25 06/10/2024 VAGIN ITIS PLUS STD PANEL gemini glabrata C. gla neg negati ve normal Not Available [address], [address], 06/10/2024 12:18:24 06/08/19 25 06/10/2024 VAGIN ITIS PLUS STD PANEL trichomonas vaginalis CV/TV TRICH neg negati ve normal Not Available [address], [address], 06/10/2024 12:18:24 06/08/19 25 06/10/2024 VAGIN ITIS PLUS STD PANEL chlamydia trachomatis CT neg negati ve normal This repor t is inten ded for us in clini mir monit oring and manag ement of alvina mcelroy. It is not inten ded for use in medic al-le gal appli catio n. Not Available [address], [address], 06/10/2024 12:18:24 06/08/19 25 06/10/2024 VAGIN ITIS PLUS STD PANEL neisseria gonorrhoeae GC neg negati ve normal This repor t is inten ded for us in clini mir monit oring and manag ement of alvina mcelroy. It is not inten ded for use in medic al-le gal appli catio n. Not Available [facility] [address] [place], [address], 06/10/2024 12:18:24 06/08/19 25 06/08/2024 urina lysis , dipst ick Leukocytes Small Not Available [facility] [address] [address], [place], [address], 06/08/2024 14:25:38 06/08/19 25 06/08/2024 urina lysis , dipst ick Nitrite negati ve Not Available [facility] [address], [address], 06/08/2024 14:25:38 06/08/19 25 06/08/2024 urina lysis , dipst ick Urobilinogen .2 Not Available [facility] [address], [address], 06/08/2024 14:25:38 06/08/19 25 06/08/2024 urina lysis , dipst ick Protein 300 Not Available [facility] [address], [address], 06/08/2024 14:25:38 06/08/19 25 06/08/2024 urina lysis , dipst ick pH 5.0 Not Available [facility] [address], [address], 06/08/2024 14:25:38 06/08/19 25 06/08/2024 urina lysis , dipst ick Blood Large Not Available [facility] [address] [address], [place], [address], 06/08/2024 14:25:38 06/08/19 25 06/08/2024 urina lysis , dipst ick Specific [place] 1.030 Not Available [facility] [address] [address], [place], [address], 06/08/2024 14:25:38 06/08/19 25 06/08/2024 urina lysis , dipst ick Ketone Trace Not Available [facility] [address] [address], [place], [address], 06/08/2024 14:25:38 06/08/19 25 06/08/2024 urina lysis , dipst ick Bilirubin Negati ve Not Available [facility] [address] [address], [place], [address], 06/08/2024 14:25:38 06/08/19 25 06/08/2024 urina lysis , dipst ick Glucose Negati ve Not Available [facility] [address] [address], [place], [address], 06/08/2024 14:25:38 06/08/19 25 06/08/2024 urina lysis , dipst ick Appearance Cloudy Not Available [facility] [address] [address], [place], [address], 06/08/2024 14:25:38 06/08/1906/08/2024 urina lysis , dipst ick Color Pale Yellow Not Available [facility] [address] [address], [place], [address], 06/08/2024 14:25:38 Result Notes None recorded. Procedures Surgical History Date Name Laterality Status Provider Name and Address Organization Details Recorded Time Date of Last Pap Smear completed Silvia Lomax [facility] 05/04/2024 16:27:26 exploration using laparoscope completed Mare Shepherd [facility] 05/04/2024 16:44:36 Imaging Results None recorded. Procedure Notes None recorded. Medical Equipment None Reported. Allergies No known drug allergies Medications Name Sig Start Date Stop Date Status Note LastModified by Organization Details LastModified Time spironolact one 100 mg tablet Take 1 tablet every day by oral route. active Not Available Not Available No t Available doxycycline hyclate 50 mg capsule Take 1 capsule every 12 hours by oral route. active Not Available Not Available No t Available clonazepam 1 mg tablet Take 1 tablet 3 times a day by oral route as needed. active Not Available Not Available No t Available Diflucan 150 mg tablet Take 1 Tablet now, then repeat in 72 hours. 2024 active Not Available Not Available Not Avai lable metronidazo le 500 mg tablet Take 1 tablet twice a day by oral route as directed for 7 days. 2024 active Not Available Not Available Not Avai lable clonidine HCl 0.2 mg tablet Take 1 tablet every day by oral route. active Not Available Not Available No t Available metformin 1,000 mg tablet Take 1 tablet every day by oral route. active Not Available Not Available No t Available lamotrigine 100 mg tablet Take 1 tablet twice a day by oral route. active Not Available Not Available No t Available amoxicillin 500 mg-potassiu m clavulanate 125 mg tablet Take 1 tablet twice a day by oral route as directed for 5 days. 2024 active Not Available Not Available Not Avai lable clonidine 06/08 completed Not Available Not Available Not Available levothyroxi ne 06/08 completed Not Available Not Available Not Available metformin 06/08 completed Not Available Not Available Not Available aripiprazol e 06/08 completed Not Available Not Available Not Available aripiprazol e 15 mg disintegrat ing tablet Place 1 tablet every day by transling ual route. active Not Available Not Available No t Available Vyvanse 70 mg capsule Take 1 capsule every day by oral route. active Not Available Not Available No t Available Vyvanse 06/08 completed Not Available Not Available Not Available lithium aspartate active Not Available Not Available No t Available levothyroxi ne 100 mcg capsule Take 1 capsule every day by oral route. active Not Available Not Available No t Available Vitals Date Recorded Body height Body mass index (BMI) Body weight Heart rate Systolic And Diastolic Provider Name and Address Organization Details Last Updated DateTime 05/04/2024 162.56 cm 39.7 kg/m2 447227.8 4 g 103 /min 120/90 mm[Hg] Mare Shepherd [employer] [facility] 05/04/2024 16:41:43 Date Recorded Body height Provider Name an d Address Organization Details Last Updated DateTime 05/20/2024 162.56 cm Mare Shepherd [place] [employer] [facility] 05/20/2024 09:46:51 Date Recorded Body mass index (BMI) Body weight Heart rate Systolic And Diastolic Provider Name and Address Organization Details Last Updated DateTime 05/20/2024 39.5 kg/m2 723831.25 g 92 /min 111/85 mm[Hg] Silvia Lomax [place] [employer] [facility] 05/20/2024 10:03:55 Date Recorded Body height Body mass index (BMI) Body weight Systolic And Diastolic Provider Name and Address Organization Details Last Updated DateTime 06/08/2024 162.56 cm 39.8 kg/m2 185374.43 g 110/72 mm[Hg] Luann Lin [place] [employer] [facility] 06/08/2024 14:22:02 Social History Question Answer Notes LastModified by Organizat ion Details LastModified Time Tobacco Smoking Status Never Smoker Mare Shepherd [facility] [employer] [facility] 05/04/2024 16:37:56 How Many Years Have You Consumed Alcohol? 5 [email or web address] Information not available 05/04/2024 Are You Blind Or Do You Have Difficulty Seeing? No [email or web address] Information not available 05/04/2024 Are You Deaf Or Do You Have Serious Difficulty Hearing? No [email or web address] Information not available 05/04/2024 What Type Of Diet Are You Following? REGULAR [email or web address] Information not available 05/04/2024 Which Illicit Or Recreational Drugs Have You Used? Marijuana [email or web address] Information not available 05/04/2024 How Many Children Do You Have? 0 [email or web address] Information not available 05/04/2024 What Is Your Relationship Status? Single [email or web address] Information not available 05/04/2024 Are You Sexually Active? Yes Information not available 05/04/2024 Sex: Unknown Functional Status Question Answer Note LastModified by Organizat ion Details LastModified Time Do you use any illicit or recreational drugs? Yes [email or web address] Information not available 05/04/2024 What is your level of alcohol consumption? Occasional [email or web address] Information not available 05/04/2024 Are you currently employed? No [email or web address] Information not available 05/04/2024 What is your exercise level? Occasional Information not available 05/04/2024 Mental Status None recorded. Family History Relationship Description Onset Age of this Age Resolved Age Notes LastModified by Organization Details LastModified Time Paternal Grandmother Cerebrovascu lar accident [email or web address] Not available 0 05/04/2024 16:27:21 Mother Irritable bowel syndrome [email or web address] Not available 04/14 16:27:21 Father Hypertensive disorder [email or web address] Not available 04/14 16:27:21 Medical History Condition Response Anxiety Disorder Y Herpes (HSV) Y Depression Y Hypothyroidism Y IBS (Irritable Bowel Syndrome) Y History of Abnormal Pap Y Panic Attacks Y Headaches/migraines Y Gynecological History Statement/Question Response Date of Last Pap Smear 04/22/2024 Current Control Method IUD Age at Menarche 12 Date of LMP Obstetrics History GPAL:G 0 P 0 0 0 0 Past Encounters Encounter ID Performer Location Encounter Start Date Encounter Closed Date Diagnosis/Indication Diagnosis SNOMED-CT Code Diagnosis ICD10 Code Diagnosis Note [id number] Bennie Dubon MD [facility] [address] [facility] [address] [place] [address] 05/04/2024 16:14:42 05/04/2024 17:45:47 Pruritus of vagina 39380548 N89.8 Acute vaginitis 70099644 N76.0 [id number] EV ONEAL CNM [facility] [address] [facility] [address] [place] [address] 05/20/2024 09:45:54 05/20/2024 10:37:13 Pruritus of vagina 18817713 N89.8 [id number] EV ONEAL CNM [facility] [facility] [address] [facility] [address] [place] [address] 06/08/2024 14:04:39 06/08/2024 14:51:19 Increased frequency of urination 309728330 R35.0 Vaginal discharge 665087 006 N89.8 Health Concerns Section Related Observation LastModified by Organization Detai ls LastModified Time None Recorded Concern Status LastModified by Organization Details LastModified Time None Recorded Advance Directives Directive None Recorded Payers Insurance Date Sequence Insurance Name Policy Number Policy Pérez Covered Member ID Pérez Member ID Guarantor Name 06/15/2024 1 [facility] [id number] Mey Thompson [id number] Peyton Thompson Notes Date Note Type Note Provider Name and Address Organization Details Recorded Time 05/04/2024 text/html Vaginal/Vulvar ProblemReported bypatient.Location:[facility] Quality:itching Severity:worsening Associated Symptoms:vaginal itching Peyton 24 y/o presents today due to a vaginal infection. Patient states she had a biopsy due to a abnormal pap and had a infection afterwards. Patient self diagnosed herself with a yeast infection took over the counter meds. Patient states the discharge has stopped but she still has itching, headaches, dizziness, and nausea Bennie Dubon MD [facility] [place], [address], [facility] [employer] 05/31/2024 00:56:09 05/20/2024 text/html Vaginal Infection/DischargeRe ported bypatient.Contexttaki ng antibiotics Associated Symptoms:no rash; no lesions; no fever; No vaginal itching; no vaginal burning; no redness or swelling; no abdominal pain; no vaginal pain; no pain during urination; no pelvic pain; no pain during intercourse Peyton presents today for a 2 week med check. Patient was given diflucan and metronidazole.States symptoms have resolved and she has no further concerns. Last visit:Peyton 24 y/o presents today due to a vaginal infection. Patient states she had a biopsy due to a abnormal pap and had a infection afterwards. Patient self diagnosed herself with a yeast infection took over the counter meds. Patient states the discharge has stopped but she still has itching, headaches, dizziness, and nausea EV ONEAL CNM [address], [place], [address], [employer] [facility] 05/20/2024 10:17:14 06/08/2024 text/html Vaginal/Vulvar ProblemReported bypatient.Location:[facility] Onset/Timing:started: (few days ago) Quality:itching; burning; painful; tender; irritation Context:sexually active; current contraception: (IUD); history of STD/PID (HSV 1 or 2) Associated Symptoms:no vulvar itching/irritation; no vulvar swelling/erythema; no vulvar pain; no vulvar lesions; no pelvic pain; no dyspareunia; no dysuria; no fever; no abdominal pain;vaginal itching;vaginal irritation;vaginal pain Peyton presents today with c/o possible UTI or vaginal infection Reports vaginal itching, pain, yellow/green dischargeAlso reports urinary frequency, but denies pain with voiding. States she was treated for BV and Yeast at the beginning of May. Symptoms resolved. Had intercourse last week and symptoms returned. EV ONEAL CNM [address], [place], [address], [facility] [employer] [facility] 06/08/2024 14:39:55 OBGyn Episode No OBEpisode recorded.
[2024-11-03 15:19] LABS: Add Urine Microscopic? NO; Appearance Urine Clear (Clear); Glucose Urine UA Negative (Negative); Leukocyte Esterase Ur Negative LEU/UL (Negative); Nitrate Urine Negative (Negative); Specific Grav Ur 1.033 (1.001-1.035)
== END 2024-11-03 14:48 | disposition home or self-care (01) ==
LOC: ANHLAB 14:48
PROVIDERS: PCP Internal Medicine; Visit Provider Internal Medicine
DX: N39.0 Urinary tract infection, site not specified (principal)
CPT/HCPCS: 81003